=== PATIENT | male | born 1960 | race Caucasian/White ===

== ENCOUNTER 2016-08-11 22:49 | Inpatient (IN) | payer MEDICARE, MEDICAID ==
[~2016-08-11] VITALS: Ht 188 cm; Wt 90.5 kg
[~2016-08-11 22:49] MED LIST: AMLO-511 PO; ASPI-556 PO; ATOR20TA86 PO; CLOZ100 PO; CLOZ25TA4 PO; DIVA500T52 PO; LORA10TA7 PO; MULT-1238 PO
[2016-08-11] MEDS ORDERED: HYDR25TA PO (23:02)
[2016-08-11 23:20] LABS: BASOPHILS % (AUTO) 0.3 % (0.0-2.0); EOSINOPHILS % (AUTO) 0 % (1.0-6.0); HEMATOCRIT 39.8 % (41-53); HEMOGLOBIN 13.1 g/dL (13.5-17.5); LYMPHOCYTES # (AUTO) 3.4 K/uL (1.0-4.8); LYMPHOCYTES % (AUTO) 24.9 % (22.0-44.0); MEAN CORPUSCULAR VOLUME 88 fL (80-100); MONOCYTES # (AUTO) 1.3 K/uL (0.1-1.0); MONOCYTES % (AUTO) 9.5 % (2.0-9.0); NEUTROPHILS # (AUTO) 8.9 K/uL (1.8-7.7); NEUTROPHILS % (AUTO) 65.3 % (40.0-70.0); PLATELET COUNT (AUTO) 294 K/uL (150-450); RED BLOOD CELL COUNT(AUTO) 4.52 MIL/uL (4.50-5.90); RED CELL DISTRIBUTION WIDTH 13.6 % (11.5-14.5); WHITE BLOOD COUNT (AUTO) 13.6 K/uL (4.5-11.0)
[2016-08-11 23:24] LABS: ANION GAP 11 mmol/L (8-16); CALCIUM, TOTAL 8.7 mg/dL (8.8-10.5); CARBON DIOXIDE 25 mmol/L (22-29); CHLORIDE 101 mmol/L (98-107); CREATININE 1.17 mg/dL (0.60-1.30); GLOMERULAR FILTR. RATE CALC > 60 mL/min (>60); POTASSIUM 3.3 mmol/L (3.5-5.1); SODIUM SERUM 137 mmol/L (136-145); UREA NITROGEN, BLOOD 23 mg/dL (7-18)
[2016-08-11 23:30] LABS: ALANINE AMINOTRANSFERASE 31 U/L (12-78); ALBUMIN 3.6 g/dL (3.4-5.0); ASPARTATE AMINOTRANSFERASE 42 U/L (15-37); BILIRUBIN,TOTAL 0.3 mg/dL (0.1-1.0)
[2016-08-12] MEDS ORDERED: POTASSIUM CHLORIDE 20 MEQ ER TABLET PO ONE (02:15)
[2016-08-12] MEDS ORDERED: DiphenhydrAMINE HCL 50 MG/ML VIAL IM ONE (02:15)
[2016-08-12] MEDS ORDERED: HALOPERIDOL LACTATE 5 MG/ML VIAL IM ONE (02:15)
[2016-08-12] MEDS ORDERED: LORazepam 2 MG/ML VIAL IM ONE (02:15)
[2016-08-12 10:39] VITALS: BP 120/71
[2016-08-12] MEDS: LORazepam 2 MG TABLET PO PRN (10:53)
[2016-08-12] MEDS: HALOPERIDOL 5 MG TABLET PO PRN (10:53)
[2016-08-12] MEDS ORDERED: PNEUMOCOCCAL VACCINE POLYVALENT 0.5 ML VIAL [PPSV23] IM ONE (12:00)
[2016-08-12] MEDS ORDERED: INFLUENZA VIRUS VACCINE QVS 2016-17 (3YR+)/PF 60 MCG/0.5 ML SYRINGE IM ONE (12:00)
[2016-08-12] MEDS: NICOTINE 21 MG/24 HOUR PATCH TD SCH (14:35)
[2016-08-12 18:16] VITALS: BP 121/67
[2016-08-12 19:00] VITALS: BP 124/67
[2016-08-12] MEDS: ZOLPIDEM TARTRATE 10 MG TABLET PO PRN (23:49)
[2016-08-13 05:06] VITALS: BP 127/85
[2016-08-13 08:00] VITALS: BP 135/79
[2016-08-13] MEDS ORDERED: MAGNESIUM HYDROXIDE SUSPENSION 30 ML UDCUP PO PRN (08:45)
[2016-08-13] MEDS ORDERED: IBUPROFEN 600 MG TABLET PO PRN (08:45)
[2016-08-13] MEDS ORDERED: PETROLATUM,WHITE 71 GM JELLY TP PRN (08:45)
[2016-08-13] MEDS ORDERED: LOPERAMIDE HCL 2 MG CAPSULE PO PRN (08:45)
[2016-08-13] MEDS ORDERED: BACITRACIN 28.4 GM OINTMENT TP PRN (08:45)
[2016-08-13] MEDS ORDERED: ONDANSETRON HCL 4 MG TABLET PO PRN (08:45)
[2016-08-13] MEDS ORDERED: MAG HYDROX/AL HYDROX/SIMETH ES 30 ML SUSPENSION UDCUP PO PRN (08:45)
[2016-08-13] MEDS ORDERED: ALBUTEROL SULFATE HFA 90 MCG/PUFF 8 GM INHALER IH PRN (08:45)
[2016-08-13] MEDS ORDERED: CloNIDine HCL 0.1 MG TABLET PO PRN (08:45)
[2016-08-13] MEDS ORDERED: BENZOCAINE/MENTHOL LOZENGE [8 LOZENGES/PACKET] MM PRN (08:45)
[2016-08-13] MEDS ORDERED: ACETAMINOPHEN 325 MG TABLET PO PRN (08:45)
[2016-08-13] MEDS ORDERED: NICOTINE 21 MG/24 HOUR PATCH TD SCH (09:00)
[2016-08-13] MEDS: MULTIVITAMINS, THERAPEUTIC TABLET PO SCH (10:35)
[2016-08-13] MEDS: AmLODIPine BESYLATE 10 MG TABLET PO SCH (10:35)
[2016-08-13] MEDS: LORATADINE 10 MG TABLET PO SCH (10:35)
[2016-08-13] MEDS: ATORVASTATIN CALCIUM 20 MG TABLET PO SCH (10:35)
[2016-08-13] MEDS: NICOTINE 21 MG/24 HOUR PATCH TD SCH (10:36)
[2016-08-13] MEDS: HYDROCHLOROTHIAZIDE 25 MG TABLET PO SCH (10:36)
[2016-08-13] MEDS: ASPIRIN 81 MG CHEWABLE TABLET PO SCH (10:37)
[2016-08-13] MEDS ORDERED: POTASSIUM CHLORIDE 20 MEQ ER TABLET PO ONE (10:45)
[2016-08-13 16:30] VITALS: BP 107/61
[2016-08-14 02:15] VITALS: BP 138/89
[2016-08-14] MEDS: LORazepam 2 MG TABLET PO PRN ×3 (02:19→23:40)
[2016-08-14] MEDS: ZOLPIDEM TARTRATE 10 MG TABLET PO PRN ×2 (02:19→23:40)
[2016-08-14 06:24] LABS: HEMOGLOBIN A1C 6.1 % (4.5-6.2)
[2016-08-14 06:31] LABS: CHOL/HDL RATIO 2.4 (4.2-7.3); POTASSIUM 4.4 mmol/L (3.5-5.1); THYROID STIMULATING HORMONE 1.61 uIU/mL (0.36-3.74)
[2016-08-14 08:30] VITALS: BP 108/62
[2016-08-14] MEDS: MULTIVITAMINS, THERAPEUTIC TABLET PO SCH (08:52)
[2016-08-14] MEDS: ASPIRIN 81 MG CHEWABLE TABLET PO SCH (08:54)
[2016-08-14] MEDS: LORATADINE 10 MG TABLET PO SCH (08:54)
[2016-08-14] MEDS: HYDROCHLOROTHIAZIDE 25 MG TABLET PO SCH (08:54)
[2016-08-14] MEDS: ATORVASTATIN CALCIUM 20 MG TABLET PO SCH (08:54)
[2016-08-14] MEDS: NICOTINE 21 MG/24 HOUR PATCH TD SCH (08:57)
[2016-08-14] MEDS: AmLODIPine BESYLATE 10 MG TABLET PO SCH (09:00)
[2016-08-14] MEDS: HALOPERIDOL 5 MG TABLET PO PRN (16:29)
[2016-08-14 21:29] VITALS: BP 147/79
[2016-08-15 03:38] VITALS: BP 127/80
[2016-08-15 08:30] VITALS: BP 128/88
[2016-08-15] MEDS: ASPIRIN 81 MG CHEWABLE TABLET PO SCH (08:45)
[2016-08-15] MEDS: ATORVASTATIN CALCIUM 20 MG TABLET PO SCH (08:45)
[2016-08-15] MEDS: LORATADINE 10 MG TABLET PO SCH (08:45)
[2016-08-15] MEDS: AmLODIPine BESYLATE 10 MG TABLET PO SCH (08:46)
[2016-08-15] MEDS: MULTIVITAMINS, THERAPEUTIC TABLET PO SCH (08:46)
[2016-08-15] MEDS: HYDROCHLOROTHIAZIDE 25 MG TABLET PO SCH (08:46)
[2016-08-15] MEDS: NICOTINE 21 MG/24 HOUR PATCH TD SCH (08:48)
[2016-08-15 16:54] VITALS: BP 140/81
[2016-08-15] MEDS: HALOPERIDOL 5 MG TABLET PO PRN (22:32)
[2016-08-15] MEDS: LORazepam 2 MG TABLET PO PRN (22:33)
[2016-08-16 00:05] VITALS: BP 118/78
[2016-08-16] MEDS: AmLODIPine BESYLATE 10 MG TABLET PO SCH (08:05)
[2016-08-16] MEDS: MULTIVITAMINS, THERAPEUTIC TABLET PO SCH (08:05)
[2016-08-16] MEDS: LORATADINE 10 MG TABLET PO SCH (08:05)
[2016-08-16] MEDS: ASPIRIN 81 MG CHEWABLE TABLET PO SCH (08:05)
[2016-08-16] MEDS: ATORVASTATIN CALCIUM 20 MG TABLET PO SCH (08:05)
[2016-08-16] MEDS: HYDROCHLOROTHIAZIDE 25 MG TABLET PO SCH (08:05)
[2016-08-16] MEDS: NICOTINE 21 MG/24 HOUR PATCH TD SCH (08:42)
[2016-08-16 16:21] VITALS: BP 135/87
[2016-08-16] MEDS: LORazepam 2 MG TABLET PO PRN (17:56)
[2016-08-16] MEDS: HALOPERIDOL 5 MG TABLET PO PRN (17:56)
[2016-08-17 01:22] VITALS: BP 142/86
[2016-08-17 08:30] VITALS: BP 144/77
[2016-08-17] MEDS: MULTIVITAMINS, THERAPEUTIC TABLET PO SCH (09:01)
[2016-08-17] MEDS: HYDROCHLOROTHIAZIDE 25 MG TABLET PO SCH (09:01)
[2016-08-17] MEDS: ATORVASTATIN CALCIUM 20 MG TABLET PO SCH (09:01)
[2016-08-17] MEDS: AmLODIPine BESYLATE 10 MG TABLET PO SCH (09:01)
[2016-08-17] MEDS: LORATADINE 10 MG TABLET PO SCH (09:01)
[2016-08-17] MEDS: ASPIRIN 81 MG CHEWABLE TABLET PO SCH (09:01)
[2016-08-17] MEDS: NICOTINE 21 MG/24 HOUR PATCH TD SCH (09:03)
[2016-08-17 16:42] VITALS: BP 139/76
[2016-08-17] MEDS: HALOPERIDOL 5 MG TABLET PO PRN (18:21)
[2016-08-17] MEDS: LORazepam 2 MG TABLET PO PRN (18:21)
[2016-08-18] MEDS: ZOLPIDEM TARTRATE 10 MG TABLET PO PRN (00:24)
[2016-08-18 00:27] VITALS: BP 113/83
[2016-08-18 06:46] LABS: BASOPHILS % (AUTO) 0.1 % (0.0-2.0); EOSINOPHILS % (AUTO) 0 % (1.0-6.0); HEMATOCRIT 41.1 % (41-53); HEMOGLOBIN 13.5 g/dL (13.5-17.5); LYMPHOCYTES # (AUTO) 2.9 K/uL (1.0-4.8); LYMPHOCYTES % (AUTO) 21.4 % (22.0-44.0); MEAN CORPUSCULAR HEMOGLOBIN 29.4 pg (26.0-34.0); MEAN CORPUSCULAR HGB CONC 32.8 G/dL (31.0-37.0); MEAN CORPUSCULAR VOLUME 89 fL (80-100); MONOCYTES # (AUTO) 1.5 K/uL (0.1-1.0); MONOCYTES % (AUTO) 10.8 % (2.0-9.0); NEUTROPHILS # (AUTO) 9.1 K/uL (1.8-7.7); NEUTROPHILS % (AUTO) 67.7 % (40.0-70.0); PLATELET COUNT (AUTO) 321 K/uL (150-450); RED BLOOD CELL COUNT(AUTO) 4.59 MIL/uL (4.50-5.90); RED CELL DISTRIBUTION WIDTH 13.1 % (11.5-14.5); WHITE BLOOD COUNT (AUTO) 13.5 K/uL (4.5-11.0)
[2016-08-18 08:30] VITALS: BP 140/75
[2016-08-18] MEDS: LORazepam 2 MG TABLET PO PRN (08:34)
[2016-08-18] MEDS: NICOTINE 21 MG/24 HOUR PATCH TD SCH (08:34)
[2016-08-18] MEDS: HALOPERIDOL 5 MG TABLET PO PRN (08:34)
[2016-08-18] MEDS: AmLODIPine BESYLATE 10 MG TABLET PO SCH (08:34)
[2016-08-18] MEDS: HYDROCHLOROTHIAZIDE 25 MG TABLET PO SCH (08:35)
[2016-08-18] MEDS: MULTIVITAMINS, THERAPEUTIC TABLET PO SCH (08:35)
[2016-08-18] MEDS: ASPIRIN 81 MG CHEWABLE TABLET PO SCH (08:35)
[2016-08-18] MEDS: ATORVASTATIN CALCIUM 20 MG TABLET PO SCH (08:35)
[2016-08-18] MEDS: LORATADINE 10 MG TABLET PO SCH (08:35)
[2016-08-18] MEDS ORDERED: CloZAPine 25 MG TABLET PO SCH (09:00)
[2016-08-19] MEDS ORDERED: CloZAPine 25 MG TABLET PO SCH ×2 (09:00→21:00)
[2016-08-21] MEDS ORDERED: CloZAPine 25 MG TABLET PO SCH (09:00)
[2016-08-26] MEDS ORDERED: CloZAPine 100 MG TABLET PO SCH (09:00)
[2016-08-30] MEDS ORDERED: CloZAPine 100 MG TABLET PO SCH ×2 (09:00→21:00)
== END 2016-08-18 16:43 | disposition home or self-care (01) | DRG 885 ==
LOC: EMS 22:52 → AHU 08-12 10:13 → 3EI 08-12 19:10
PROVIDERS: ADMIT Psychiatry & Neurology Psychiatry; ATTEND Psychiatry & Neurology Psychiatry
DX: F20.0 Paranoid schizophrenia (principal); E78.5 Hyperlipidemia, unspecified; E87.6 Hypokalemia; I10 Essential (primary) hypertension; I25.10 Atherosclerotic heart disease of native coronary artery without angina pectoris; F17.210 Nicotine dependence, cigarettes, uncomplicated; J44.9 Chronic obstructive pulmonary disease, unspecified; E11.65 Type 2 diabetes mellitus with hyperglycemia; K21.9 Gastro-esophageal reflux disease without esophagitis; K59.00 Constipation, unspecified; Z78.1 Physical restraint status; Z71.6 Tobacco abuse counseling; Z79.82 Long term (current) use of aspirin; Z79.899 Other long term (current) drug therapy
CPT/HCPCS: 82306; 83036; 84132; 84443; 96372; 99285; G0480; J1200; J1630; J2060; J3535

== ENCOUNTER 2016-08-18 16:15 | Inpatient (IN) | payer MEDICARE, MEDICAID ==
[~2016-08-18] VITALS: Ht 188 cm; Wt 93.2 kg
[~2016-08-18 16:15] MED LIST changes: +HYDR25TA PO
[2016-08-18] MEDS ORDERED: IBUPROFEN 600 MG TABLET PO PRN (17:15)
[2016-08-18] MEDS ORDERED: PETROLATUM,WHITE 71 GM JELLY TP PRN (17:15)
[2016-08-18] MEDS ORDERED: LOPERAMIDE HCL 2 MG CAPSULE PO PRN (17:15)
[2016-08-18] MEDS ORDERED: ACETAMINOPHEN 325 MG TABLET PO PRN (17:15)
[2016-08-18] MEDS ORDERED: CloNIDine HCL 0.1 MG TABLET PO PRN (17:30)
[2016-08-18] MEDS ORDERED: MAG HYDROX/AL HYDROX/SIMETH 30 ML SUSP UDCUP PO PRN (17:30)
[2016-08-18] MEDS ORDERED: BACITRACIN 28.4 GM OINTMENT TP PRN (17:30)
[2016-08-18 17:51] VITALS: BP 134/68
[2016-08-18] MEDS: ZOLPIDEM TARTRATE 10 MG TABLET PO PRN (22:12)
[2016-08-19 02:29] VITALS: BP 132/78
[2016-08-19 08:51] VITALS: BP 139/72
[2016-08-19] MEDS: ASPIRIN 81 MG CHEWABLE TABLET PO SCH (08:54)
[2016-08-19] MEDS: MULTIVITAMINS, THERAPEUTIC TABLET PO SCH (08:54)
[2016-08-19] MEDS: AmLODIPine BESYLATE 10 MG TABLET PO SCH (08:54)
[2016-08-19] MEDS: LORATADINE 10 MG TABLET PO SCH (08:54)
[2016-08-19] MEDS: ATORVASTATIN CALCIUM 20 MG TABLET PO SCH (08:54)
[2016-08-19] MEDS: HYDROCHLOROTHIAZIDE 25 MG TABLET PO SCH (08:54)
[2016-08-19] MEDS ORDERED: CloZAPine 25 MG TABLET PO SCH ×2 (09:00→21:00)
[2016-08-19] MEDS: NICOTINE 21 MG/24 HOUR PATCH TD SCH (09:01)
[2016-08-19 18:47] VITALS: BP 146/82
[2016-08-19] MEDS: BENZOCAINE/MENTHOL LOZENGES [6 LOZENGES/PACKET] PO PRN (20:49)
[2016-08-20] MEDS: ZOLPIDEM TARTRATE 10 MG TABLET PO PRN (01:01)
[2016-08-20 02:30] VITALS: BP 138/79
[2016-08-20] MEDS: LORazepam 2 MG TABLET PO PRN ×2 (02:33→15:44)
[2016-08-20 08:05] VITALS: BP 141/79
[2016-08-20] MEDS: HYDROCHLOROTHIAZIDE 25 MG TABLET PO SCH (08:11)
[2016-08-20] MEDS: MULTIVITAMINS, THERAPEUTIC TABLET PO SCH (08:11)
[2016-08-20] MEDS: AmLODIPine BESYLATE 10 MG TABLET PO SCH (08:11)
[2016-08-20] MEDS: ASPIRIN 81 MG CHEWABLE TABLET PO SCH (08:11)
[2016-08-20] MEDS: LORATADINE 10 MG TABLET PO SCH (08:11)
[2016-08-20] MEDS: ATORVASTATIN CALCIUM 20 MG TABLET PO SCH (08:11)
[2016-08-20] MEDS: NICOTINE 21 MG/24 HOUR PATCH TD SCH (08:16)
[2016-08-20] MEDS: BENZOCAINE/MENTHOL LOZENGES [6 LOZENGES/PACKET] PO PRN (08:59)
[2016-08-20] MEDS ORDERED: CloZAPine 25 MG TABLET PO SCH ×2 (09:00→21:00)
[2016-08-20] MEDS: HALOPERIDOL 5 MG TABLET PO PRN (15:44)
[2016-08-20 17:00] VITALS: BP 145/76
[2016-08-21 05:45] VITALS: BP 126/73
[2016-08-21 08:01] VITALS: BP 152/98
[2016-08-21] MEDS: MULTIVITAMINS, THERAPEUTIC TABLET PO SCH (08:54)
[2016-08-21] MEDS: ASPIRIN 81 MG CHEWABLE TABLET PO SCH (08:55)
[2016-08-21] MEDS: ATORVASTATIN CALCIUM 20 MG TABLET PO SCH (08:55)
[2016-08-21] MEDS: AmLODIPine BESYLATE 10 MG TABLET PO SCH (08:55)
[2016-08-21] MEDS: CloZAPine 25 MG TABLET PO SCH ×2 (08:55→19:59)
[2016-08-21] MEDS: LORATADINE 10 MG TABLET PO SCH (08:55)
[2016-08-21] MEDS: HYDROCHLOROTHIAZIDE 25 MG TABLET PO SCH (08:56)
[2016-08-21] MEDS: NICOTINE 21 MG/24 HOUR PATCH TD SCH (08:57)
[2016-08-21 16:58] VITALS: BP 114/77
[2016-08-22 03:00] VITALS: BP 148/86
[2016-08-22] MEDS: HALOPERIDOL 5 MG TABLET PO PRN (04:19)
[2016-08-22] MEDS: LORazepam 2 MG TABLET PO PRN (04:19)
[2016-08-22 08:05] VITALS: BP 140/75
[2016-08-22] MEDS: MULTIVITAMINS, THERAPEUTIC TABLET PO SCH (08:48)
[2016-08-22] MEDS: CloZAPine 25 MG TABLET PO SCH ×2 (08:48→20:25)
[2016-08-22] MEDS: AmLODIPine BESYLATE 10 MG TABLET PO SCH (08:49)
[2016-08-22] MEDS: ATORVASTATIN CALCIUM 20 MG TABLET PO SCH (08:49)
[2016-08-22] MEDS: ASPIRIN 81 MG CHEWABLE TABLET PO SCH (08:49)
[2016-08-22] MEDS: LORATADINE 10 MG TABLET PO SCH (08:49)
[2016-08-22] MEDS: HYDROCHLOROTHIAZIDE 25 MG TABLET PO SCH (08:51)
[2016-08-22] MEDS: NICOTINE 21 MG/24 HOUR PATCH TD SCH (08:53)
[2016-08-22 16:38] VITALS: BP 130/79
[2016-08-23 00:55] VITALS: BP 154/96
[2016-08-23 08:06] VITALS: BP 155/83
[2016-08-23] MEDS: MULTIVITAMINS, THERAPEUTIC TABLET PO SCH (08:18)
[2016-08-23] MEDS: AmLODIPine BESYLATE 10 MG TABLET PO SCH (08:19)
[2016-08-23] MEDS: ASPIRIN 81 MG CHEWABLE TABLET PO SCH (08:19)
[2016-08-23] MEDS: LORATADINE 10 MG TABLET PO SCH (08:20)
[2016-08-23] MEDS: ATORVASTATIN CALCIUM 20 MG TABLET PO SCH (08:20)
[2016-08-23] MEDS: HYDROCHLOROTHIAZIDE 25 MG TABLET PO SCH (08:21)
[2016-08-23] MEDS: NICOTINE 21 MG/24 HOUR PATCH TD SCH ×2 (08:21→09:00)
[2016-08-23] MEDS ORDERED: CloZAPine 25 MG TABLET PO SCH (09:00)
[2016-08-23] MEDS: HALOPERIDOL 5 MG TABLET PO PRN (15:48)
[2016-08-23] MEDS: LORazepam 2 MG TABLET PO PRN (15:48)
[2016-08-23 17:00] VITALS: BP 163/87
[2016-08-23] MEDS ORDERED: CloZAPine 100 MG TABLET PO SCH (21:00)
[2016-08-24 06:40] VITALS: BP 141/83
[2016-08-24] MEDS: LORazepam 2 MG TABLET PO PRN (07:56)
[2016-08-24] MEDS: HYDROCHLOROTHIAZIDE 25 MG TABLET PO SCH (08:11)
[2016-08-24] MEDS: LORATADINE 10 MG TABLET PO SCH (08:12)
[2016-08-24] MEDS: MULTIVITAMINS, THERAPEUTIC TABLET PO SCH (08:12)
[2016-08-24] MEDS: ASPIRIN 81 MG CHEWABLE TABLET PO SCH (08:12)
[2016-08-24] MEDS: AmLODIPine BESYLATE 10 MG TABLET PO SCH (08:12)
[2016-08-24] MEDS: ATORVASTATIN CALCIUM 20 MG TABLET PO SCH (08:13)
[2016-08-24] MEDS: NICOTINE 21 MG/24 HOUR PATCH TD SCH (08:15)
[2016-08-24] MEDS ORDERED: CloZAPine 25 MG TABLET PO SCH (09:00)
[2016-08-24 16:43] VITALS: BP 112/77
[2016-08-24] MEDS ORDERED: CloZAPine 100 MG TABLET PO SCH (21:00)
[2016-08-25 06:34] LABS: BASOPHILS % (AUTO) 0.7 % (0.0-2.0); EOSINOPHILS % (AUTO) 0 % (1.0-6.0); HEMATOCRIT 39.9 % (41-53); HEMOGLOBIN 13.3 g/dL (13.5-17.5); LYMPHOCYTES # (AUTO) 2.6 K/uL (1.0-4.8); MEAN CORPUSCULAR HEMOGLOBIN 29.3 pg (26.0-34.0); MEAN CORPUSCULAR HGB CONC 33.2 G/dL (31.0-37.0); MEAN CORPUSCULAR VOLUME 88 fL (80-100); NEUTROPHILS # (AUTO) 6.9 K/uL (1.8-7.7); NEUTROPHILS % (AUTO) 65.3 % (40.0-70.0); PLATELET COUNT (AUTO) 304 K/uL (150-450); RED BLOOD CELL COUNT(AUTO) 4.53 MIL/uL (4.50-5.90); RED CELL DISTRIBUTION WIDTH 13.3 % (11.5-14.5); WHITE BLOOD COUNT (AUTO) 10.6 K/uL (4.5-11.0)
[2016-08-25] MEDS: ASPIRIN 81 MG CHEWABLE TABLET PO SCH (08:47)
[2016-08-25] MEDS: ATORVASTATIN CALCIUM 20 MG TABLET PO SCH (08:47)
[2016-08-25] MEDS: HYDROCHLOROTHIAZIDE 25 MG TABLET PO SCH (08:49)
[2016-08-25] MEDS: LORATADINE 10 MG TABLET PO SCH (08:49)
[2016-08-25] MEDS: MULTIVITAMINS, THERAPEUTIC TABLET PO SCH (08:49)
[2016-08-25] MEDS: NICOTINE 21 MG/24 HOUR PATCH TD SCH (09:00)
[2016-08-25] MEDS ORDERED: CloZAPine 25 MG TABLET PO SCH (09:00)
[2016-08-25] MEDS: AmLODIPine BESYLATE 10 MG TABLET PO SCH (09:00)
[2016-08-25 16:56] VITALS: BP 155/89
[2016-08-25 16:57] VITALS: BP 155/89
[2016-08-25] MEDS: HALOPERIDOL 5 MG TABLET PO PRN (19:16)
[2016-08-25] MEDS: LORazepam 2 MG TABLET PO PRN (19:16)
[2016-08-25] MEDS ORDERED: CloZAPine 100 MG TABLET PO SCH (21:00)
[2016-08-26 02:40] VITALS: BP 134/74
[2016-08-26] MEDS: LORATADINE 10 MG TABLET PO SCH (08:19)
[2016-08-26] MEDS: ASPIRIN 81 MG CHEWABLE TABLET PO SCH (08:19)
[2016-08-26] MEDS: MULTIVITAMINS, THERAPEUTIC TABLET PO SCH (08:19)
[2016-08-26] MEDS: HYDROCHLOROTHIAZIDE 25 MG TABLET PO SCH (08:19)
[2016-08-26] MEDS: ATORVASTATIN CALCIUM 20 MG TABLET PO SCH (08:20)
[2016-08-26] MEDS: CloZAPine 100 MG TABLET PO SCH ×2 (08:20→20:24)
[2016-08-26] MEDS: AmLODIPine BESYLATE 10 MG TABLET PO SCH (08:21)
[2016-08-26] MEDS: NICOTINE 21 MG/24 HOUR PATCH TD SCH (09:00)
[2016-08-26 10:26] VITALS: BP 154/79
[2016-08-26 17:16] VITALS: BP 121/79
[2016-08-27 00:10] VITALS: BP 140/76
[2016-08-27] MEDS: LORazepam 2 MG TABLET PO PRN (00:13)
[2016-08-27] MEDS: ZOLPIDEM TARTRATE 10 MG TABLET PO PRN (00:51)
[2016-08-27 08:00] VITALS: BP 169/83
[2016-08-27] MEDS: LORATADINE 10 MG TABLET PO SCH (08:26)
[2016-08-27] MEDS: HYDROCHLOROTHIAZIDE 25 MG TABLET PO SCH (08:26)
[2016-08-27] MEDS: MULTIVITAMINS, THERAPEUTIC TABLET PO SCH (08:26)
[2016-08-27] MEDS: ATORVASTATIN CALCIUM 20 MG TABLET PO SCH (08:26)
[2016-08-27] MEDS: ASPIRIN 81 MG CHEWABLE TABLET PO SCH (08:26)
[2016-08-27] MEDS: CloZAPine 100 MG TABLET PO SCH ×2 (08:26→20:00)
[2016-08-27] MEDS: AmLODIPine BESYLATE 10 MG TABLET PO SCH (08:26)
[2016-08-27] MEDS: NICOTINE 21 MG/24 HOUR PATCH TD SCH (09:00)
[2016-08-27 16:46] VITALS: BP 154/86
[2016-08-28 00:32] VITALS: BP 182/99
[2016-08-28 01:34] VITALS: BP 175/107
[2016-08-28 08:00] VITALS: BP 146/80
[2016-08-28] MEDS: AmLODIPine BESYLATE 10 MG TABLET PO SCH (08:52)
[2016-08-28] MEDS: ASPIRIN 81 MG CHEWABLE TABLET PO SCH (08:52)
[2016-08-28] MEDS: MULTIVITAMINS, THERAPEUTIC TABLET PO SCH (08:52)
[2016-08-28] MEDS: ATORVASTATIN CALCIUM 20 MG TABLET PO SCH (08:53)
[2016-08-28] MEDS: LORATADINE 10 MG TABLET PO SCH (08:53)
[2016-08-28] MEDS: NICOTINE 21 MG/24 HOUR PATCH TD SCH (08:53)
[2016-08-28] MEDS: HYDROCHLOROTHIAZIDE 25 MG TABLET PO SCH (08:53)
[2016-08-28] MEDS: LORazepam 2 MG TABLET PO PRN (08:54)
[2016-08-28] MEDS ORDERED: CloZAPine 25 MG TABLET PO SCH (09:00)
[2016-08-28 16:54] VITALS: BP 121/79
[2016-08-28] MEDS ORDERED: CloZAPine 100 MG TABLET PO SCH (21:00)
[2016-08-29 03:26] VITALS: BP 133/91
[2016-08-29 08:00] VITALS: BP 150/86
[2016-08-29] MEDS: ATORVASTATIN CALCIUM 20 MG TABLET PO SCH (08:05)
[2016-08-29] MEDS: ASPIRIN 81 MG CHEWABLE TABLET PO SCH (08:05)
[2016-08-29] MEDS: AmLODIPine BESYLATE 10 MG TABLET PO SCH (08:05)
[2016-08-29] MEDS: LORATADINE 10 MG TABLET PO SCH (08:05)
[2016-08-29] MEDS: MULTIVITAMINS, THERAPEUTIC TABLET PO SCH (08:05)
[2016-08-29] MEDS: LORazepam 2 MG TABLET PO PRN (08:07)
[2016-08-29] MEDS: HYDROCHLOROTHIAZIDE 25 MG TABLET PO SCH (08:07)
[2016-08-29] MEDS: NICOTINE 21 MG/24 HOUR PATCH TD SCH (08:09)
[2016-08-29] MEDS ORDERED: CloZAPine 25 MG TABLET PO SCH (09:00)
[2016-08-29 16:57] VITALS: BP 131/78
[2016-08-29] MEDS ORDERED: CloZAPine 100 MG TABLET PO SCH (21:00)
[2016-08-30 05:54] VITALS: BP 141/80
[2016-08-30] MEDS: LORATADINE 10 MG TABLET PO SCH (08:03)
[2016-08-30] MEDS: ATORVASTATIN CALCIUM 20 MG TABLET PO SCH (08:03)
[2016-08-30] MEDS: ASPIRIN 81 MG CHEWABLE TABLET PO SCH (08:03)
[2016-08-30] MEDS: AmLODIPine BESYLATE 10 MG TABLET PO SCH (08:03)
[2016-08-30] MEDS: MULTIVITAMINS, THERAPEUTIC TABLET PO SCH (08:04)
[2016-08-30] MEDS: HYDROCHLOROTHIAZIDE 25 MG TABLET PO SCH (08:04)
[2016-08-30] MEDS: CloZAPine 100 MG TABLET PO SCH ×2 (08:04→20:38)
[2016-08-30 08:05] VITALS: BP 151/89
[2016-08-30] MEDS: NICOTINE 21 MG/24 HOUR PATCH TD SCH (08:09)
[2016-08-30 16:12] VITALS: BP 123/78
[2016-08-31 08:12] VITALS: BP 130/78
[2016-08-31] MEDS: ASPIRIN 81 MG CHEWABLE TABLET PO SCH (08:28)
[2016-08-31] MEDS: AmLODIPine BESYLATE 10 MG TABLET PO SCH (08:28)
[2016-08-31] MEDS: CloZAPine 100 MG TABLET PO SCH ×2 (08:28→20:13)
[2016-08-31] MEDS: LORATADINE 10 MG TABLET PO SCH (08:28)
[2016-08-31] MEDS: ATORVASTATIN CALCIUM 20 MG TABLET PO SCH (08:28)
[2016-08-31] MEDS: MULTIVITAMINS, THERAPEUTIC TABLET PO SCH (08:28)
[2016-08-31] MEDS: HYDROCHLOROTHIAZIDE 25 MG TABLET PO SCH (08:29)
[2016-08-31] MEDS: NICOTINE 21 MG/24 HOUR PATCH TD SCH (08:32)
[2016-09-01 06:39] LABS: BASOPHILS % (AUTO) 0.3 % (0.0-2.0); EOSINOPHILS % (AUTO) 0 % (1.0-6.0); HEMATOCRIT 41.6 % (41-53); HEMOGLOBIN 13.3 g/dL (13.5-17.5); LYMPHOCYTES # (AUTO) 2.3 K/uL (1.0-4.8); LYMPHOCYTES % (AUTO) 20.6 % (22.0-44.0); MEAN CORPUSCULAR HEMOGLOBIN 28.3 pg (26.0-34.0); MEAN CORPUSCULAR HGB CONC 31.9 G/dL (31.0-37.0); MEAN CORPUSCULAR VOLUME 89 fL (80-100); MONOCYTES # (AUTO) 1.5 K/uL (0.1-1.0); MONOCYTES % (AUTO) 13.7 % (2.0-9.0); NEUTROPHILS # (AUTO) 7.4 K/uL (1.8-7.7); NEUTROPHILS % (AUTO) 65.4 % (40.0-70.0); PLATELET COUNT (AUTO) 239 K/uL (150-450); RED CELL DISTRIBUTION WIDTH 13.3 % (11.5-14.5); WHITE BLOOD COUNT (AUTO) 11.3 K/uL (4.5-11.0)
[2016-09-01 08:05] VITALS: BP 136/88
[2016-09-01] MEDS: AmLODIPine BESYLATE 10 MG TABLET PO SCH (08:06)
[2016-09-01] MEDS: MULTIVITAMINS, THERAPEUTIC TABLET PO SCH (08:06)
[2016-09-01] MEDS: ATORVASTATIN CALCIUM 20 MG TABLET PO SCH (08:06)
[2016-09-01] MEDS: HYDROCHLOROTHIAZIDE 25 MG TABLET PO SCH (08:06)
[2016-09-01] MEDS: ASPIRIN 81 MG CHEWABLE TABLET PO SCH (08:06)
[2016-09-01] MEDS: CloZAPine 100 MG TABLET PO SCH (08:06)
[2016-09-01] MEDS: LORATADINE 10 MG TABLET PO SCH (08:07)
[2016-09-01] MEDS: NICOTINE 21 MG/24 HOUR PATCH TD SCH (08:10)
[2016-09-01] MEDS ORDERED: CLOZ100 PO (10:27)
== END 2016-09-01 17:24 | disposition home or self-care (01) | DRG 885 ==
LOC: 3EX 16:15
PROVIDERS: ADMIT Psychiatry & Neurology Psychiatry; ATTEND Psychiatry & Neurology Psychiatry
DX: F20.0 Paranoid schizophrenia (principal); F17.200 Nicotine dependence, unspecified, uncomplicated; G47.00 Insomnia, unspecified; I10 Essential (primary) hypertension; J44.9 Chronic obstructive pulmonary disease, unspecified; K21.9 Gastro-esophageal reflux disease without esophagitis; K59.00 Constipation, unspecified; M19.90 Unspecified osteoarthritis, unspecified site; F09 Unspecified mental disorder due to known physiological condition; Z71.6 Tobacco abuse counseling

== ENCOUNTER 2016-12-16 09:58 | Inpatient (IN) | payer MEDICARE, MEDICAID ==
[~2016-12-16] VITALS: Ht 185.4 cm; Wt 90.7 kg
[~2016-12-16 09:58] MED LIST changes: -CLOZ25TA4 PO; -DIVA500T52 PO
[2016-12-16 13:05] VITALS: BP 116/84
[2016-12-16] MEDS ORDERED: HALOPERIDOL 5 MG TABLET PO PRN (13:15)
[2016-12-16] MEDS ORDERED: LORazepam 2 MG TABLET PO PRN (13:15)
[2016-12-16] MEDS ORDERED: ZOLPIDEM TARTRATE 10 MG TABLET PO PRN (13:15)
[2016-12-16] MEDS ORDERED: OMEG-11 PO (14:04)
[2016-12-16 14:07] VITALS: BP 112/72
[2016-12-16] MEDS ORDERED: PNEUMOCOCCAL VACCINE POLYVALENT 0.5 ML VIAL [PPSV23] IM ONE (15:00)
[2016-12-16 16:09] VITALS: BP 110/62
[2016-12-16] MEDS ORDERED: MAGNESIUM HYDROXIDE SUSPENSION 30 ML UDCUP PO PRN (17:15)
[2016-12-16] MEDS ORDERED: CloZAPine 100 MG TABLET PO ONE (21:00)
[2016-12-17 00:51] VITALS: BP 110/73
[2016-12-17] MEDS ORDERED: ACETAMINOPHEN 325 MG TABLET PO PRN (08:00)
[2016-12-17] MEDS ORDERED: ALBUTEROL SULFATE HFA 90 MCG/PUFF 8 GM INHALER IH PRN (08:00)
[2016-12-17] MEDS ORDERED: PETROLATUM,WHITE 71 GM JELLY TP PRN (08:00)
[2016-12-17] MEDS ORDERED: IBUPROFEN 600 MG TABLET PO PRN (08:00)
[2016-12-17] MEDS ORDERED: ONDANSETRON HCL 4 MG TABLET PO PRN (08:00)
[2016-12-17] MEDS ORDERED: MAGNESIUM HYDROXIDE SUSPENSION 30 ML UDCUP PO PRN (08:00)
[2016-12-17] MEDS ORDERED: LOPERAMIDE HCL 2 MG CAPSULE PO PRN (08:00)
[2016-12-17] MEDS ORDERED: BACITRACIN 28.4 GM OINTMENT TP PRN (08:00)
[2016-12-17] MEDS ORDERED: MAG HYDROX/AL HYDROX/SIMETH ES 30 ML SUSPENSION UDCUP PO PRN (08:00)
[2016-12-17] MEDS ORDERED: BENZOCAINE/MENTHOL LOZENGE MM PRN (08:00)
[2016-12-17] MEDS ORDERED: CloNIDine HCL 0.1 MG TABLET PO PRN (08:00)
[2016-12-17 08:22] LABS: BASOPHILS # (AUTO) 0.05 K/uL (0.00-0.20); BASOPHILS % (AUTO) 0.4 % (0.0-2.0); EOSINOPHILS % (AUTO) 0.02 % (1.0-6.0); HEMATOCRIT 42.4 % (41-53); HEMOGLOBIN 14.1 g/dL (13.5-17.5); LYMPHOCYTES # (AUTO) 4.1 K/uL (1.0-4.8); LYMPHOCYTES % (AUTO) 32.1 % (22.0-44.0); MEAN CORPUSCULAR HEMOGLOBIN 28.9 pg (26.0-34.0); MEAN CORPUSCULAR HGB CONC 33.2 G/dL (31.0-37.0); MEAN CORPUSCULAR VOLUME 87 fL (80-100); MONOCYTES # (AUTO) 1.1 K/uL (0.1-1.0); MONOCYTES % (AUTO) 8.8 % (2.0-9.0); NEUTROPHILS # (AUTO) 7.5 K/uL (1.8-7.7); NEUTROPHILS % (AUTO) 58.8 % (40.0-70.0); PLATELET COUNT (AUTO) 284 K/uL (150-450); RED BLOOD CELL COUNT(AUTO) 4.87 MIL/uL (4.50-5.90); RED CELL DISTRIBUTION WIDTH 14.7 % (11.5-14.5); WHITE BLOOD COUNT (AUTO) 12.8 K/uL (4.5-11.0)
[2016-12-17] MEDS: NICOTINE 21 MG/24 HOUR PATCH TD SCH (08:45)
[2016-12-17 08:48] LABS: CARBON DIOXIDE 29 mmol/L (22-29); CHLORIDE 104 mmol/L (98-107); POTASSIUM 4.5 mmol/L (3.5-5.1); SODIUM SERUM 139 mmol/L (136-145)
[2016-12-17 08:49] LABS: ALANINE AMINOTRANSFERASE 32 U/L (12-78); ALBUMIN 3.4 g/dL (3.4-5.0); ANION GAP 6 mmol/L (8-16); ASPARTATE AMINOTRANSFERASE 13 U/L (15-37); BILIRUBIN,TOTAL 0.3 mg/dL (0.1-1.0); CALCIUM, TOTAL 8.6 mg/dL (8.8-10.5); CREATININE 1.01 mg/dL (0.60-1.30); GLOMERULAR FILTR. RATE CALC > 60 mL/min (>60); TOTAL PROTEIN, SERUM 6.2 g/dL (6.4-8.2); UREA NITROGEN, BLOOD 16 mg/dL (7-18)
[2016-12-17 09:12] LABS: GLUCOSE, URINE (UA) NEGATIVE (NEGATIVE); KETONES,URINE NEGATIVE (NEGATIVE); LEUKOCYTE ESTERASE ,URINE NEGATIVE (NEGATIVE); OCCULT BLOOD,URINE NEGATIVE (NEGATIVE); PH,URINE 6.5 (5.0-8.0); PROTEIN,URINE NEGATIVE (NEGATIVE)
[2016-12-17 09:19] LABS: ADD UA MICROSCOPIC NO; APPEARANCE,URINE CLEAR (CLEAR)
[2016-12-17] MEDS: CloZAPine 100 MG TABLET PO SCH ×2 (10:32→20:47)
[2016-12-17 12:55] VITALS: BP 107/65
[2016-12-17] MEDS ORDERED: AMLO-512 PO (13:19)
[2016-12-17 16:00] VITALS: BP 118/79
[2016-12-17] MEDS ORDERED: CloZAPine 100 MG TABLET PO SCH (21:00)
[2016-12-18 00:01] VITALS: BP 128/73
[2016-12-18 08:02] VITALS: BP 108/62
[2016-12-18] MEDS: NICOTINE 21 MG/24 HOUR PATCH TD SCH (08:05)
[2016-12-18] MEDS: CloZAPine 100 MG TABLET PO SCH ×2 (08:05→20:07)
[2016-12-18] MEDS ORDERED: CloZAPine 100 MG TABLET PO SCH (09:00)
[2016-12-18 16:07] VITALS: BP 124/72
[2016-12-19 04:59] VITALS: BP 125/72
[2016-12-19 08:05] VITALS: BP 120/62
[2016-12-19] MEDS: CloZAPine 100 MG TABLET PO SCH ×2 (08:56→20:40)
[2016-12-19] MEDS: NICOTINE 21 MG/24 HOUR PATCH TD SCH (08:56)
[2016-12-19 16:16] VITALS: BP 136/77
[2016-12-20] MEDS: NICOTINE 21 MG/24 HOUR PATCH TD SCH (08:19)
[2016-12-20] MEDS: CloZAPine 100 MG TABLET PO SCH ×2 (08:19→20:46)
[2016-12-20 08:35] VITALS: BP 123/54
[2016-12-20] MEDS: LISINOPRIL 10 MG TABLET PO SCH (09:00)
[2016-12-20 16:07] VITALS: BP 134/79
[2016-12-21 00:35] VITALS: BP 114/60
[2016-12-21 08:02] VITALS: BP 125/68
[2016-12-21] MEDS: LISINOPRIL 10 MG TABLET PO SCH (08:15)
[2016-12-21] MEDS: CloZAPine 100 MG TABLET PO SCH ×2 (08:15→20:34)
[2016-12-21] MEDS: NICOTINE 21 MG/24 HOUR PATCH TD SCH (08:15)
[2016-12-21 10:20] LABS: CLOZAPINE 181 ng/mL (350-650); CLOZAPINE & NORCLOZAPINE 257 ng/mL; NORCLOZAPINE 76 ng/mL (Not Estab.)
[2016-12-21 16:14] VITALS: BP 129/71
[2016-12-22 00:44] VITALS: BP 127/76
[2016-12-22 08:21] VITALS: BP 118/57
[2016-12-22] MEDS: NICOTINE 21 MG/24 HOUR PATCH TD SCH (09:32)
[2016-12-22] MEDS: CloZAPine 100 MG TABLET PO SCH ×2 (09:32→20:47)
[2016-12-22] MEDS: LISINOPRIL 10 MG TABLET PO SCH (09:32)
[2016-12-22 16:06] VITALS: BP 118/75
[2016-12-23 00:49] VITALS: BP 124/65
[2016-12-23 08:05] VITALS: BP 117/64
[2016-12-23] MEDS: LISINOPRIL 10 MG TABLET PO SCH (08:58)
[2016-12-23] MEDS: NICOTINE 21 MG/24 HOUR PATCH TD SCH (08:59)
[2016-12-23] MEDS: CloZAPine 100 MG TABLET PO SCH (08:59)
[2016-12-23] MEDS ORDERED: LISI-661 PO (10:05)
== END 2016-12-23 12:25 | disposition home or self-care (01) | DRG 885 ==
LOC: B2X 13:32 → EDSTATUS 14:08
DX: F20.0 Paranoid schizophrenia (principal); F23 Brief psychotic disorder; K21.9 Gastro-esophageal reflux disease without esophagitis; J44.9 Chronic obstructive pulmonary disease, unspecified; I10 Essential (primary) hypertension; K59.00 Constipation, unspecified; G47.00 Insomnia, unspecified; Z71.6 Tobacco abuse counseling; F17.290 Nicotine dependence, other tobacco product, uncomplicated; Z79.82 Long term (current) use of aspirin; Z91.5 Personal history of self-harm; Z79.899 Other long term (current) drug therapy; Z28.21 Immunization not carried out because of patient refusal
CPT/HCPCS: 80159; 90471

== ENCOUNTER 2018-12-22 21:36 | Inpatient (IN) | payer MEDICAID, MEDICARE ==
[~2018-12-22 21:36] MED LIST changes: -AMLO-511 PO; -ASPI-556 PO; -ATOR20TA86 PO; -HYDR25TA PO; +LISI-661 PO; -LORA10TA7 PO; -MULT-1238 PO
[2018-12-22 22:01] VITALS: BP 125/78
[2018-12-22] MEDS ORDERED: ZOLPIDEM TARTRATE 10 MG TABLET PO PRN (22:30)
[2018-12-22] MEDS ORDERED: HALOPERIDOL 5 MG TABLET PO PRN (22:30)
[2018-12-23 01:08] VITALS: BP 133/70
[2018-12-23] MEDS ORDERED: IBUPROFEN 400 MG TABLET PO PRN (01:45)
[2018-12-23] MEDS ORDERED: ACETAMINOPHEN 325 MG TABLET PO PRN (01:45)
[2018-12-23] MEDS ORDERED: GuaiFENesin/D-METHORPHAN [SUGAR-FREE] 200-20MG/10 ML SYRUP UDCUP PO PRN (01:45)
[2018-12-23] MEDS ORDERED: MAG HYDROX/AL HYDROX/SIMETH ES 30 ML SUSPENSION UDCUP PO PRN (01:45)
[2018-12-23] MEDS ORDERED: PETROLATUM,WHITE 28 GM JELLY TP PRN (01:45)
[2018-12-23] MEDS ORDERED: DOCUSATE SODIUM 100 MG CAPSULE PO PRN (01:45)
[2018-12-23] MEDS ORDERED: CloNIDine HCL 0.1 MG TABLET PO PRN (01:45)
[2018-12-23] MEDS ORDERED: ALBUTEROL SULFATE HFA 90 MCG/PUFF 8 GM INHALER IH PRN (01:45)
[2018-12-23] MEDS ORDERED: LOPERAMIDE HCL 2 MG CAPSULE PO PRN (01:45)
[2018-12-23] MEDS ORDERED: NICOTINE 14 MG/24 HOUR PATCH TD PRN (01:45)
[2018-12-23] MEDS ORDERED: MAGNESIUM HYDROXIDE SUSPENSION 30 ML UDCUP PO PRN (01:45)
[2018-12-23] MEDS ORDERED: ONDANSETRON HCL 4 MG TABLET PO PRN (01:45)
[2018-12-23 08:44] VITALS: BP 116/60
[2018-12-23] MEDS: LORazepam 2 MG TABLET PO PRN (09:04)
[2018-12-23 16:23] VITALS: BP 124/74
[2018-12-23] MEDS: CloZAPine 100 MG TABLET PO SCH (20:40)
[2018-12-24 07:00] VITALS: BP 120/80
[2018-12-24 08:46] VITALS: BP 128/70
[2018-12-24] MEDS: CloZAPine 100 MG TABLET PO SCH ×2 (08:57→20:42)
[2018-12-24] MEDS: LORazepam 2 MG TABLET PO PRN (12:14)
[2018-12-24 16:10] VITALS: BP 139/81
[2018-12-25 00:40] VITALS: BP 140/81
[2018-12-25 08:50] VITALS: BP 113/64
[2018-12-25] MEDS: CloZAPine 100 MG TABLET PO SCH ×2 (08:57→20:55)
[2018-12-25 16:06] VITALS: BP 139/92
[2018-12-25] MEDS ORDERED: PNEUMOCOCCAL VACCINE POLYVALENT 0.5 ML VIAL [PPSV23] IM ONE (21:15)
[2018-12-26 00:10] VITALS: BP 127/76
[2018-12-26 08:15] VITALS: BP 115/60
[2018-12-26] MEDS: LISINOPRIL 10 MG TABLET PO SCH (09:15)
[2018-12-26] MEDS: CloZAPine 100 MG TABLET PO SCH ×2 (09:15→21:40)
[2018-12-26 16:18] VITALS: BP 124/76
[2018-12-27 00:02] VITALS: BP 122/78
[2018-12-27 08:37] VITALS: BP 103/60
[2018-12-27] MEDS: CloZAPine 100 MG TABLET PO SCH ×2 (08:55→20:07)
[2018-12-27] MEDS: LISINOPRIL 10 MG TABLET PO SCH (08:56)
[2018-12-27 16:48] VITALS: BP 122/67
[2018-12-28 06:25] VITALS: BP 120/77
[2018-12-28] MEDS: LISINOPRIL 10 MG TABLET PO SCH (09:06)
[2018-12-28] MEDS: CloZAPine 100 MG TABLET PO SCH (09:06)
[2018-12-28 09:31] VITALS: BP 125/74
== END 2018-12-28 12:20 | disposition home or self-care (01) | DRG 885 ==
LOC: B2X 22:33 → B2S 12-25 09:16
PROVIDERS: ADMIT Psychiatry & Neurology Psychiatry; ATTEND Psychiatry & Neurology Psychiatry
DX: F25.0 Schizoaffective disorder, bipolar type (principal); R45.851 Suicidal ideations; F41.9 Anxiety disorder, unspecified; E78.5 Hyperlipidemia, unspecified; G40.909 Epilepsy, unspecified, not intractable, without status epilepticus; R45.87 Impulsiveness; I10 Essential (primary) hypertension; I25.10 Atherosclerotic heart disease of native coronary artery without angina pectoris; J44.9 Chronic obstructive pulmonary disease, unspecified; Z91.19 Patient's noncompliance with other medical treatment and regimen; Z28.21 Immunization not carried out because of patient refusal

== ENCOUNTER 2019-10-18 19:48 | Inpatient (IN) | payer MEDICARE, MEDICAID ==
[~2019-10-18] VITALS: Ht 185.4 cm; Wt 97.5 kg
[~2019-10-18 19:48] MED LIST changes: -CLOZ100 PO; +CLOZ100T57 PO
[2019-10-18 20:10] VITALS: BP 158/79
[2019-10-18] MEDS ORDERED: LORazepam 2 MG/ML VIAL IM ONE (20:15)
[2019-10-18] MEDS ORDERED: PNEUMOCOCCAL VACCINE POLYVALENT 0.5 ML VIAL [PPSV23] IM ONE (20:15)
[2019-10-18] MEDS ORDERED: HALOPERIDOL 5 MG TABLET PO PRN (20:15)
[2019-10-18] MEDS ORDERED: HALOPERIDOL LACTATE 5 MG/ML VIAL IM ONE (20:15)
[2019-10-18] MEDS ORDERED: DiphenhydrAMINE HCL 50 MG/ML VIAL IM ONE (20:15)
[2019-10-18] MEDS ORDERED: INFLUENZA VIRUS VACCINE QVS 2019-20 (3YR+)/PF 60 MCG/0.5 ML SYRINGE IM ONE (20:15)
[2019-10-18 22:00] VITALS: BP 116/70
[2019-10-19 03:53] VITALS: BP 124/73
[2019-10-19 08:14] VITALS: BP 123/69
[2019-10-19] MEDS: LISINOPRIL 10 MG TABLET PO SCH (09:16)
[2019-10-19] MEDS: NICOTINE 21 MG/24 HOUR PATCH TD SCH (09:16)
[2019-10-19 17:40] VITALS: BP 130/74
[2019-10-19] MEDS ORDERED: IBUPROFEN 400 MG TABLET PO PRN (19:30)
[2019-10-19] MEDS ORDERED: ALBUTEROL SULFATE HFA 90 MCG/PUFF 8 GM INHALER IH PRN (19:30)
[2019-10-19] MEDS ORDERED: NICOTINE 14 MG/24 HOUR PATCH TD PRN (19:30)
[2019-10-19] MEDS ORDERED: GuaiFENesin/D-METHORPHAN [SUGAR-FREE] 200-20MG/10 ML SYRUP UDCUP PO PRN (19:30)
[2019-10-19] MEDS ORDERED: DOCUSATE SODIUM 100 MG CAPSULE PO PRN (19:30)
[2019-10-19] MEDS ORDERED: CloNIDine HCL 0.1 MG TABLET PO PRN (19:30)
[2019-10-19] MEDS ORDERED: LOPERAMIDE HCL 2 MG CAPSULE PO PRN (19:30)
[2019-10-19] MEDS ORDERED: MAGNESIUM HYDROXIDE SUSPENSION 30 ML UDCUP PO PRN (19:30)
[2019-10-19] MEDS ORDERED: PETROLATUM,WHITE 28 GM JELLY TP PRN (19:30)
[2019-10-19] MEDS ORDERED: ACETAMINOPHEN 325 MG TABLET PO PRN (19:30)
[2019-10-19] MEDS ORDERED: MAG HYDROX/AL HYDROX/SIMETH ES 30 ML SUSPENSION UDCUP PO PRN (19:30)
[2019-10-19] MEDS ORDERED: ONDANSETRON HCL 4 MG TABLET PO PRN (19:30)
[2019-10-19 23:37] VITALS: BP 122/76
[2019-10-20 00:07] VITALS: BP 122/76
[2019-10-20 07:11] VITALS: BP 130/78
[2019-10-20] MEDS: LORazepam 2 MG TABLET PO PRN (07:13)
[2019-10-20 07:25] LABS: BASOPHILS % (AUTO) 0.5 % (0.0-2.0); EOSINOPHILS % (AUTO) 0 % (1.0-6.0); HEMATOCRIT 44.1 % (41-53); HEMOGLOBIN 14.4 g/dL (13.5-17.5); LYMPHOCYTES # (AUTO) 2.6 K/uL (1.0-4.8); LYMPHOCYTES % (AUTO) 19.9 % (22.0-44.0); MEAN CORPUSCULAR HEMOGLOBIN 28.8 pg (26.0-34.0); MEAN CORPUSCULAR HGB CONC 32.6 G/dL (31.0-37.0); MEAN CORPUSCULAR VOLUME 88 fL (80-100); MONOCYTES # (AUTO) 1.6 K/uL (0.1-1.0); MONOCYTES % (AUTO) 12.1 % (2.0-9.0); NEUTROPHILS # (AUTO) 8.6 K/uL (1.8-7.7); NEUTROPHILS % (AUTO) 67.5 % (40.0-70.0); PLATELET COUNT (AUTO) 282 K/uL (150-450); RED BLOOD CELL COUNT(AUTO) 4.98 MIL/uL (4.50-5.90); RED CELL DISTRIBUTION WIDTH 13.7 % (11.5-14.5)
[2019-10-20] MEDS: LISINOPRIL 10 MG TABLET PO SCH (08:02)
[2019-10-20] MEDS: NICOTINE 21 MG/24 HOUR PATCH TD SCH (08:02)
[2019-10-20 08:12] LABS: ALANINE AMINOTRANSFERASE 36 U/L (12-78); ALBUMIN 3.9 g/dL (3.4-5.0); ALKALINE PHOSPHATASE 88 U/L (46-116); ANION GAP 8 mmol/L (8-16); ASPARTATE AMINOTRANSFERASE 16 U/L (15-37); BILIRUBIN,TOTAL 0.3 mg/dL (0.1-1.0); CALCIUM, TOTAL 9.2 mg/dL (8.8-10.5); CARBON DIOXIDE 28 mmol/L (22-29); CHLORIDE 103 mmol/L (98-107); CHOL/HDL RATIO 5.8 (4.2-7.3); CHOLESTEROL 144 mg/dL (131-200); CREATININE 0.98 mg/dL (0.60-1.30); FREE T4 (FREE THYROXINE) 1.32 ng/dL (0.76-1.46); GLOMERULAR FILTR. RATE CALC > 60 mL/min (>60); GLUCOSE,RANDOM 163 mg/dL (70-110); HDL CHOLESTEROL 25 mg/dL (40-60); LDL CHOL (CALC.) 61 mg/dL (0-130); SODIUM SERUM 139 mmol/L (136-145); THYROID STIMULATING HORMONE 2.83 uIU/mL (0.36-3.74); TOTAL PROTEIN, SERUM 6.8 g/dL (6.4-8.2); TRIGLYCERIDES 292 mg/dL (15-150); UREA NITROGEN, BLOOD 21 mg/dL (7-18)
[2019-10-20 08:14] LABS: HEMOGLOBIN A1C 7.2 % (3.8-5.6)
[2019-10-20 08:37] VITALS: BP 138/78
[2019-10-20 16:17] VITALS: BP 123/82
[2019-10-20] MEDS: ZOLPIDEM TARTRATE 10 MG TABLET PO PRN (22:30)
[2019-10-21 03:32] VITALS: BP 124/70
[2019-10-21] MEDS: LORazepam 2 MG TABLET PO PRN (03:35)
[2019-10-21 08:11] VITALS: BP 113/72
[2019-10-21 08:12] LABS: AMPHET/METH SCREEN,URINE NEGATIVE (NEGATIVE); BARBITURATE SCREEN, URINE NEGATIVE (NEGATIVE); BENZODIAZEPINES SCREEN,URINE NEGATIVE (NEGATIVE); CANNABINOID SCREEN,URINE NEGATIVE (NEGATIVE); COCAINE SCREEN,URINE NEGATIVE (NEGATIVE); METHADONE SCREEN, URINE NEGATIVE (NEGATIVE); OPIATE SCREEN,URINE NEGATIVE (NEGATIVE)
[2019-10-21 08:15] LABS: APPEARANCE,URINE CLEAR (CLEAR); BILIRUBIN,URINE NEGATIVE (NEGATIVE); GLUCOSE, URINE (UA) NEGATIVE (NEGATIVE); KETONES,URINE NEGATIVE (NEGATIVE); LEUKOCYTE ESTERASE ,URINE NEGATIVE (NEGATIVE); NITRATE,URINE NEGATIVE (NEGATIVE); OCCULT BLOOD,URINE MODERATE (NEGATIVE); PH,URINE 6.5 (5.0-8.0); PROTEIN,URINE NEGATIVE (NEGATIVE); UROBILINOGEN,URINE 0.2 mg/dL (<=1.0)
[2019-10-21 08:25] LABS: BACTERIA,URINE None Seen /HPF (None Seen); RBC,URINE 0-2 /HPF (0-2); SQUAMOUS EPITHELIAL CELL,UR Few /LPF (None Seen); WBC,URINE None Seen /HPF (0-5)
[2019-10-21 08:34] LABS: PHENCYCLIDINE SCREEN,URINE NEGATIVE (NEGATIVE)
[2019-10-21] MEDS: NICOTINE 21 MG/24 HOUR PATCH TD SCH (08:39)
[2019-10-21] MEDS: LISINOPRIL 10 MG TABLET PO SCH (08:39)
[2019-10-21 16:09] VITALS: BP 120/78
[2019-10-21] MEDS: ZOLPIDEM TARTRATE 10 MG TABLET PO PRN (20:57)
[2019-10-22] MEDS: LORazepam 2 MG TABLET PO PRN (00:44)
[2019-10-22 01:15] VITALS: BP 143/79
[2019-10-22 08:20] VITALS: BP 126/79
[2019-10-22] MEDS: NICOTINE 21 MG/24 HOUR PATCH TD SCH (08:36)
[2019-10-22] MEDS: LISINOPRIL 10 MG TABLET PO SCH (08:36)
[2019-10-22] MEDS ORDERED: CloZAPine 100 MG TABLET PO ONE (13:45)
[2019-10-22 16:11] VITALS: BP 133/71
[2019-10-22] MEDS: CloZAPine 100 MG TABLET PO SCH (20:53)
[2019-10-23 04:48] VITALS: BP 142/85
[2019-10-23 08:12] LABS: BASOPHILS % (AUTO) 0.5 % (0.0-2.0); EOSINOPHILS % (AUTO) 0 % (1.0-6.0); HEMOGLOBIN 13.1 g/dL (13.5-17.5); LYMPHOCYTES # (AUTO) 2.8 K/uL (1.0-4.8); LYMPHOCYTES % (AUTO) 27.2 % (22.0-44.0); MEAN CORPUSCULAR HGB CONC 32.7 G/dL (31.0-37.0); MEAN CORPUSCULAR VOLUME 89 fL (80-100); MONOCYTES # (AUTO) 1.3 K/uL (0.1-1.0); MONOCYTES % (AUTO) 12.8 % (2.0-9.0); NEUTROPHILS # (AUTO) 6.1 K/uL (1.8-7.7); NEUTROPHILS % (AUTO) 59.5 % (40.0-70.0); PLATELET COUNT (AUTO) 263 K/uL (150-450); RED CELL DISTRIBUTION WIDTH 13.6 % (11.5-14.5)
[2019-10-23 08:23] VITALS: BP 137/81
[2019-10-23] MEDS: DIVALPROEX SODIUM 500 MG ER TABLET PO SCH (08:57)
[2019-10-23] MEDS: LISINOPRIL 10 MG TABLET PO SCH (08:57)
[2019-10-23] MEDS: CloZAPine 100 MG TABLET PO SCH ×2 (08:57→20:41)
[2019-10-23] MEDS: NICOTINE 21 MG/24 HOUR PATCH TD SCH (09:01)
[2019-10-23 16:20] VITALS: BP 148/92
[2019-10-23 17:19] VITALS: BP 141/86
[2019-10-24 08:04] VITALS: BP_SYST 117; BP_SYST 137; BP_DIAS 73; BP_DIAS 79
[2019-10-24] MEDS: LISINOPRIL 10 MG TABLET PO SCH (08:45)
[2019-10-24] MEDS: DIVALPROEX SODIUM 500 MG ER TABLET PO SCH (08:45)
[2019-10-24] MEDS: NICOTINE 21 MG/24 HOUR PATCH TD SCH (08:45)
[2019-10-24] MEDS: CloZAPine 100 MG TABLET PO SCH ×2 (08:45→20:36)
[2019-10-24 16:43] VITALS: BP 139/83
[2019-10-25 06:19] VITALS: BP 140/89
[2019-10-25 08:22] VITALS: BP 124/60
[2019-10-25] MEDS: CloZAPine 100 MG TABLET PO SCH ×2 (09:06→20:37)
[2019-10-25] MEDS: LISINOPRIL 10 MG TABLET PO SCH (09:06)
[2019-10-25] MEDS: DIVALPROEX SODIUM 500 MG ER TABLET PO SCH (09:06)
[2019-10-25] MEDS: NICOTINE 21 MG/24 HOUR PATCH TD SCH (09:10)
[2019-10-25 16:14] VITALS: BP 137/78
[2019-10-26 08:25] VITALS: BP 134/78
[2019-10-26] MEDS: DIVALPROEX SODIUM 500 MG ER TABLET PO SCH (08:34)
[2019-10-26] MEDS: CloZAPine 100 MG TABLET PO SCH ×2 (08:34→20:39)
[2019-10-26] MEDS: LISINOPRIL 10 MG TABLET PO SCH (08:34)
[2019-10-26] MEDS: NICOTINE 21 MG/24 HOUR PATCH TD SCH (08:37)
[2019-10-26 16:12] VITALS: BP 127/77
[2019-10-27 01:59] VITALS: BP 122/76
[2019-10-27 08:07] VITALS: BP 136/69
[2019-10-27] MEDS: NICOTINE 21 MG/24 HOUR PATCH TD SCH (08:45)
[2019-10-27] MEDS: CloZAPine 100 MG TABLET PO SCH ×2 (08:45→20:37)
[2019-10-27] MEDS: DIVALPROEX SODIUM 500 MG ER TABLET PO SCH (08:45)
[2019-10-27] MEDS: LISINOPRIL 10 MG TABLET PO SCH (08:45)
[2019-10-27 16:00] VITALS: BP 137/80
[2019-10-28 03:22] VITALS: BP 142/74
[2019-10-28] MEDS: LORazepam 2 MG TABLET PO PRN (03:23)
[2019-10-28] MEDS: CloZAPine 100 MG TABLET PO SCH ×2 (08:34→20:42)
[2019-10-28] MEDS: DIVALPROEX SODIUM 500 MG ER TABLET PO SCH (08:34)
[2019-10-28] MEDS: NICOTINE 21 MG/24 HOUR PATCH TD SCH (08:35)
[2019-10-28 08:37] VITALS: BP 124/70
[2019-10-28] MEDS: LISINOPRIL 10 MG TABLET PO SCH (08:40)
[2019-10-28 16:18] VITALS: BP 108/61
[2019-10-29 05:35] VITALS: BP 138/78
[2019-10-29 08:32] VITALS: BP 156/86
[2019-10-29] MEDS: DIVALPROEX SODIUM 500 MG ER TABLET PO SCH (09:02)
[2019-10-29] MEDS: LISINOPRIL 10 MG TABLET PO SCH (09:02)
[2019-10-29] MEDS: CloZAPine 100 MG TABLET PO SCH ×2 (09:02→20:30)
[2019-10-29] MEDS: NICOTINE 21 MG/24 HOUR PATCH TD SCH (09:34)
[2019-10-29 16:09] VITALS: BP 129/68
[2019-10-30 00:26] VITALS: BP 137/94
[2019-10-30 08:16] LABS: BASOPHILS % (AUTO) 0.8 % (0.0-2.0); EOSINOPHILS % (AUTO) 0 % (1.0-6.0); HEMATOCRIT 43.6 % (41-53); HEMOGLOBIN 14.4 g/dL (13.5-17.5); LYMPHOCYTES % (AUTO) 38.3 % (22.0-44.0); MEAN CORPUSCULAR VOLUME 88 fL (80-100); MONOCYTES # (AUTO) 0.8 K/uL (0.1-1.0); MONOCYTES % (AUTO) 10.8 % (2.0-9.0); NEUTROPHILS # (AUTO) 3.9 K/uL (1.8-7.7); NEUTROPHILS % (AUTO) 50.1 % (40.0-70.0); PLATELET COUNT (AUTO) 280 K/uL (150-450); RED BLOOD CELL COUNT(AUTO) 4.96 MIL/uL (4.50-5.90); RED CELL DISTRIBUTION WIDTH 13.3 % (11.5-14.5)
[2019-10-30 08:27] VITALS: BP 125/63
[2019-10-30] MEDS: DIVALPROEX SODIUM 500 MG ER TABLET PO SCH (08:43)
[2019-10-30] MEDS: CloZAPine 100 MG TABLET PO SCH ×2 (08:44→20:39)
[2019-10-30] MEDS: LISINOPRIL 10 MG TABLET PO SCH (08:44)
[2019-10-30] MEDS: NICOTINE 21 MG/24 HOUR PATCH TD SCH (08:45)
[2019-10-30 16:11] VITALS: BP 139/87
[2019-10-31 01:29] VITALS: BP 129/67
[2019-10-31 08:09] VITALS: BP 118/70
[2019-10-31] MEDS: DIVALPROEX SODIUM 500 MG ER TABLET PO SCH (08:31)
[2019-10-31] MEDS: CloZAPine 100 MG TABLET PO SCH ×2 (08:31→20:33)
[2019-10-31] MEDS: LISINOPRIL 10 MG TABLET PO SCH (08:31)
[2019-10-31] MEDS: NICOTINE 21 MG/24 HOUR PATCH TD SCH (08:32)
[2019-10-31 16:09] VITALS: BP 123/72
[2019-11-01 01:01] VITALS: BP 139/79
[2019-11-01 08:33] VITALS: BP 140/90
[2019-11-01] MEDS: DIVALPROEX SODIUM 500 MG ER TABLET PO SCH (08:44)
[2019-11-01] MEDS: MULTIVITAMINS WITH MINERALS, THERAPEUTIC TABLET PO SCH (08:45)
[2019-11-01] MEDS: CloZAPine 100 MG TABLET PO SCH ×2 (08:45→21:06)
[2019-11-01] MEDS: OMEGA-3/DHA/EPA/FISH OIL 1,000 MG CAPSULE PO SCH (08:45)
[2019-11-01] MEDS: LISINOPRIL 10 MG TABLET PO SCH (08:45)
[2019-11-01] MEDS: NICOTINE 21 MG/24 HOUR PATCH TD SCH (08:45)
[2019-11-01 16:10] VITALS: BP 132/87
[2019-11-02 00:25] VITALS: BP 135/66
[2019-11-02] MEDS: OMEGA-3/DHA/EPA/FISH OIL 1,000 MG CAPSULE PO SCH (08:19)
[2019-11-02] MEDS: MULTIVITAMINS WITH MINERALS, THERAPEUTIC TABLET PO SCH (08:19)
[2019-11-02] MEDS: LISINOPRIL 10 MG TABLET PO SCH (08:20)
[2019-11-02] MEDS: CloZAPine 100 MG TABLET PO SCH ×2 (08:20→20:15)
[2019-11-02] MEDS: DIVALPROEX SODIUM 500 MG ER TABLET PO SCH (08:20)
[2019-11-02] MEDS: NICOTINE 21 MG/24 HOUR PATCH TD SCH (08:21)
[2019-11-02 08:49] VITALS: BP 123/60
[2019-11-02 17:11] VITALS: BP 133/68
[2019-11-03 00:27] VITALS: BP 135/79
[2019-11-03 08:48] VITALS: BP 131/77
[2019-11-03] MEDS: LISINOPRIL 10 MG TABLET PO SCH (10:30)
[2019-11-03] MEDS: MULTIVITAMINS WITH MINERALS, THERAPEUTIC TABLET PO SCH (10:30)
[2019-11-03] MEDS: OMEGA-3/DHA/EPA/FISH OIL 1,000 MG CAPSULE PO SCH (10:30)
[2019-11-03] MEDS: DIVALPROEX SODIUM 500 MG ER TABLET PO SCH (10:30)
[2019-11-03] MEDS: NICOTINE 21 MG/24 HOUR PATCH TD SCH (10:30)
[2019-11-03] MEDS: CloZAPine 100 MG TABLET PO SCH ×2 (10:31→20:33)
[2019-11-03 16:00] VITALS: BP 141/83
[2019-11-04 06:56] VITALS: BP 120/60
[2019-11-04 08:15] VITALS: BP 112/69
[2019-11-04] MEDS: CloZAPine 100 MG TABLET PO SCH ×2 (09:43→20:58)
[2019-11-04] MEDS: DIVALPROEX SODIUM 500 MG ER TABLET PO SCH (09:43)
[2019-11-04] MEDS: NICOTINE 21 MG/24 HOUR PATCH TD SCH (09:44)
[2019-11-04] MEDS: LISINOPRIL 10 MG TABLET PO SCH (09:44)
[2019-11-04] MEDS: OMEGA-3/DHA/EPA/FISH OIL 1,000 MG CAPSULE PO SCH (09:46)
[2019-11-04] MEDS: MULTIVITAMINS WITH MINERALS, THERAPEUTIC TABLET PO SCH (09:48)
[2019-11-04 16:12] VITALS: BP 131/71
[2019-11-05 05:48] VITALS: BP 134/72
[2019-11-05 08:34] VITALS: BP 113/66
[2019-11-05] MEDS: DIVALPROEX SODIUM 500 MG ER TABLET PO SCH (08:40)
[2019-11-05] MEDS: OMEGA-3/DHA/EPA/FISH OIL 1,000 MG CAPSULE PO SCH (08:40)
[2019-11-05] MEDS: LISINOPRIL 10 MG TABLET PO SCH (08:40)
[2019-11-05] MEDS: MULTIVITAMINS WITH MINERALS, THERAPEUTIC TABLET PO SCH (08:40)
[2019-11-05] MEDS: CloZAPine 100 MG TABLET PO SCH ×2 (08:40→20:37)
[2019-11-05] MEDS: NICOTINE 21 MG/24 HOUR PATCH TD SCH (08:41)
[2019-11-05 16:09] VITALS: BP 134/84
[2019-11-06] MEDS: LISINOPRIL 10 MG TABLET PO SCH (08:18)
[2019-11-06] MEDS: DIVALPROEX SODIUM 500 MG ER TABLET PO SCH (08:18)
[2019-11-06] MEDS: MULTIVITAMINS WITH MINERALS, THERAPEUTIC TABLET PO SCH (08:18)
[2019-11-06] MEDS: OMEGA-3/DHA/EPA/FISH OIL 1,000 MG CAPSULE PO SCH (08:18)
[2019-11-06] MEDS: NICOTINE 21 MG/24 HOUR PATCH TD SCH (08:19)
[2019-11-06] MEDS: CloZAPine 100 MG TABLET PO SCH (08:20)
[2019-11-06 08:22] VITALS: BP 116/69
[2019-11-06] MEDS ORDERED: DIVA500T52 PO (10:03)
== END 2019-11-06 15:00 | disposition home or self-care (01) | DRG 885 ==
LOC: B2X 20:05
PROVIDERS: ADMIT Psychiatry & Neurology Psychiatry; ATTEND Psychiatry & Neurology Psychiatry
DX: F20.0 Paranoid schizophrenia (principal); E78.5 Hyperlipidemia, unspecified; G40.909 Epilepsy, unspecified, not intractable, without status epilepticus; I10 Essential (primary) hypertension; I25.10 Atherosclerotic heart disease of native coronary artery without angina pectoris; J44.9 Chronic obstructive pulmonary disease, unspecified; K21.9 Gastro-esophageal reflux disease without esophagitis; F41.9 Anxiety disorder, unspecified; F32.9 Major depressive disorder, single episode, unspecified
CPT/HCPCS: 80307; 83036; 84439; 84443; 90686; 90732; J1200; J1630; J2060

== ENCOUNTER 2020-12-08 12:31 | Emergency (ER) | payer MEDICARE ==
[~2020-12-08] VITALS: Ht 188 cm; Wt 100.0 kg
[~2020-12-08 12:31] MED LIST changes: +CLOZ100T32 PO; -CLOZ100T57 PO; +DIVA-80 PO; -LISI-661 PO; +LISI-893 PO; +METF-960 PO; +TRAZ-252 PO
[2020-12-08 12:46] VITALS: BP 141/93
[2020-12-08 14:10] LABS: COVID AG,FIA SOURCE NASOPHARYNGEAL
[2020-12-08 14:13] LABS: BASOPHILS % (AUTO) 0.6 % (0.0-2.0); EOSINOPHILS % (AUTO) 0 % (1.0-6.0); HEMATOCRIT 43.7 % (41-53); HEMOGLOBIN 14.5 g/dL (13.5-17.5); LYMPHOCYTES # (AUTO) 2.9 K/uL (1.0-4.8); MEAN CORPUSCULAR HEMOGLOBIN 29.1 pg (26.0-34.0); MEAN CORPUSCULAR HGB CONC 33.2 G/dL (31.0-37.0); MEAN CORPUSCULAR VOLUME 88 fL (80-100); NEUTROPHILS # (AUTO) 8.1 K/uL (1.8-7.7); NEUTROPHILS % (AUTO) 67.4 % (40.0-70.0); PLATELET COUNT (AUTO) 272 K/uL (150-450); RED BLOOD CELL COUNT(AUTO) 4.98 MIL/uL (4.50-5.90); RED CELL DISTRIBUTION WIDTH 13.2 % (11.5-14.5)
[2020-12-08 14:25] LABS: ANION GAP 10 mmol/L (8-16); CARBON DIOXIDE 27 mmol/L (22-29); CHLORIDE 103 mmol/L (98-107); POTASSIUM 4.3 mmol/L (3.5-5.1); SODIUM SERUM 140 mmol/L (136-145)
[2020-12-08 14:26] LABS: CALCIUM, TOTAL 8.9 mg/dL (8.8-10.5); CREATININE 1.07 mg/dL (0.60-1.30); GLOMERULAR FILTR. RATE CALC > 60 mL/min (>60); GLUCOSE,RANDOM 236 mg/dL (70-110); UREA NITROGEN, BLOOD 16 mg/dL (7-18)
[2020-12-08 14:32] LABS: ALANINE AMINOTRANSFERASE 32 U/L (12-78); ALBUMIN 3.9 g/dL (3.4-5.0); ALKALINE PHOSPHATASE 93 U/L (46-116); ASPARTATE AMINOTRANSFERASE 14 U/L (15-37); BILIRUBIN,TOTAL 0.3 mg/dL (0.1-1.0); TOTAL PROTEIN, SERUM 7.2 g/dL (6.4-8.2); VALPROIC ACID 29 mcg/mL (50-100)
== END 2020-12-08 15:10 | disposition home or self-care (01) ==
LOC: EMS 12:34
DX: F20.0 Paranoid schizophrenia (principal); R91.1 Solitary pulmonary nodule; I25.10 Atherosclerotic heart disease of native coronary artery without angina pectoris; I10 Essential (primary) hypertension; F17.210 Nicotine dependence, cigarettes, uncomplicated; Z20.822 Contact with and (suspected) exposure to COVID-19; Z79.899 Other long term (current) drug therapy; Z79.84 Long term (current) use of oral hypoglycemic drugs
CPT/HCPCS: 36415; 71045; 80053; 80164; 85025; 87426; 99284; G0480

== ENCOUNTER 2021-07-25 18:01 | Outpatient (CLI) | payer MEDICARE ==
[~2021-07-25 18:01] MED LIST changes: +METF-1211 PO; -METF-960 PO
[2021-07-25 18:56] LABS: GLUCOMETER DEV NAME(LOC) POC.BV
[2021-07-25 19:12] VITALS: BP 154/93
[2021-07-25 19:13] VITALS: BP 154/93
== END 2021-07-25 19:45 | disposition home or self-care (01) ==
LOC: CSU 18:01
PROVIDERS: ATTEND Psychiatry & Neurology Psychiatry
DX: F99 Mental disorder, not otherwise specified (principal)

== ENCOUNTER 2025-05-29 10:16 | Inpatient (IN) | payer MEDICARE ==
[~2025-05-29] VITALS: Ht 185.4 cm; Wt 94.8 kg
[2025-05-29 09:45] VITALS: BP 127/75; PULSE 89; RESP 18; TEMP 98.1; O2SAT 96
[~2025-05-29 10:16] MED LIST changes: -CLOZ100T32 PO; +CLOZ100T61 PO; -DIVA-80 PO; +DIVA-85 PO; +LISI-662 PO; -LISI-893 PO
[2025-05-29] MEDS ORDERED: ZOLPIDEM TARTRATE 10 MG TABLET PO PRN (10:30)
[2025-05-29 11:45] VITALS: BP 125/97; PULSE 86; RESP 18; TEMP 98.3; O2SAT 98
[2025-05-29 16:50] LABS: GLUCOMETER DEV NAME(LOC) POC.BV; POC SARS-COV2 AG, FIA NEGATIVE (NEGATIVE)
[2025-05-29] MEDS ORDERED: [UNRECOGNIZED DRUG - OTHER] IM. ONE (17:15)
[2025-05-29] MEDS ORDERED: INFLUENZA VIRUS VACCINE TVS IM. ONE (17:15)
[2025-05-29] MEDS ORDERED: BENZOCAINE/MENTHOL [CEPACOL] LOZENGE PO PRN (20:00)
[2025-05-29] MEDS ORDERED: MAGNESIUM HYDROXIDE SUSPENSION 30 ML UDCUP PO PRN (20:00)
[2025-05-29] MEDS ORDERED: OMEPRAZOLE 20 MG CAPSULE PO PRN (20:00)
[2025-05-29] MEDS ORDERED: LOPERAMIDE HCL 2 MG CAPSULE PO PRN (20:00)
[2025-05-29] MEDS ORDERED: ALBUTEROL SULFATE HFA 90 MCG/PUFF 8 GM INHALER IH PRN (20:00)
[2025-05-29] MEDS ORDERED: MAG HYDROX/ALUMINUM HYD/SIMETH ES 30 ML SUSPENSION UDCUP PO PRN (20:00)
[2025-05-29] MEDS ORDERED: ACETAMINOPHEN 325 MG TABLET PO PRN (20:00)
[2025-05-29] MEDS ORDERED: PETROLATUM,WHITE 28 GM JELLY TP PRN (20:00)
[2025-05-29] MEDS ORDERED: BACITRACIN 28 GM OINTMENT TP PRN (20:00)
[2025-05-29] MEDS ORDERED: ONDANSETRON 4 MG TABLET PO PRN (20:00)
[2025-05-29] MEDS ORDERED: DEXTROSE 50%-WATER 25 GM/50 ML SYRINGE IVP PRN (20:00)
[2025-05-29 22:45] VITALS: BP 117/66; PULSE 83; RESP 18; TEMP 98.6; O2SAT 96
[2025-05-30] MEDS: IBUPROFEN 600 MG TABLET PO PRN (01:26)
[2025-05-30 01:28] VITALS: BP 132/85; PULSE 81; RESP 18; TEMP 98.1; O2SAT 95
[2025-05-30 02:35] VITALS: RESP 18
[2025-05-30] MEDS: INSULIN LISPRO 100 UNITS/ML SQ PRN (05:47)
[2025-05-30 05:50] LABS: GLUCOMETER DEV NAME(LOC) BV2X.3; GLUCOSE,POINT OF CARE 271 MG/DL (70-110)
[2025-05-30 08:36] VITALS: BP 125/69; PULSE 60; RESP 18; TEMP 98.3; O2SAT 95
[2025-05-30 09:19] LABS: PLATELET COUNT (AUTO) 302 K/uL (150-450); RED BLOOD CELL COUNT(AUTO) 5.45 MIL/uL (4.50-5.90); RED CELL DISTRIBUTION WIDTH 13.7 % (11.5-14.5); WHITE BLOOD COUNT (AUTO) 9.8 K/uL (4.5-11.0)
[2025-05-30 09:47] LABS: ASPARTATE AMINOTRANSFERASE 22 U/L (15-37); CALCIUM, TOTAL 8.9 mg/dL (8.8-10.5); CHOL/HDL RATIO 5.9 (4.2-7.3); CREATININE 0.88 mg/dL (0.60-1.30); GLOMERULAR FILTR. RATE CALC > 60 mL/min (>60); GLUCOSE,RANDOM 174 mg/dL (70-110); LDL CHOL (CALC.) 72 mg/dL (0-130); SODIUM SERUM 135 mmol/L (136-145); TOTAL PROTEIN, SERUM 7.4 g/dL (6.4-8.2); UREA NITROGEN, BLOOD 20 mg/dL (7-18)
[2025-05-30 10:50] LABS: GLUCOMETER DEV NAME(LOC) POC.BV; POC SARS-COV2 AG, FIA NEGATIVE (NEGATIVE)
[2025-05-30 12:50] LABS: GLUCOMETER DEV NAME(LOC) BV2X.3; GLUCOSE,POINT OF CARE 218 MG/DL (70-110)
[2025-05-30 18:11] LABS: GLUCOMETER DEV NAME(LOC) BV2X.3; GLUCOSE,POINT OF CARE 270 MG/DL (70-110)
[2025-05-30 20:07] VITALS: BP 143/84; PULSE 83; RESP 19; TEMP 97.5; O2SAT 99
[2025-05-30 20:51] LABS: GLUCOMETER DEV NAME(LOC) BV2X.3; GLUCOSE,POINT OF CARE 185 MG/DL (70-110)
[2025-05-31 06:26] LABS: GLUCOMETER DEV NAME(LOC) BV2X.3; GLUCOSE,POINT OF CARE 198 MG/DL (70-110)
[2025-05-31 08:00] VITALS: BP 139/81; PULSE 79; RESP 18; TEMP 97; O2SAT 98
[2025-05-31] MEDS: DOCUSATE SODIUM 100 MG CAPSULE PO PRN (09:16)
[2025-05-31 11:11] LABS: GLUCOMETER DEV NAME(LOC) BV2X.3; GLUCOSE,POINT OF CARE 277 MG/DL (70-110)
[2025-05-31 17:35] LABS: GLUCOMETER DEV NAME(LOC) BV2X.3; GLUCOSE,POINT OF CARE 276 MG/DL (70-110)
[2025-05-31 20:22] VITALS: BP 127/72; PULSE 87; RESP 18; TEMP 97.2; O2SAT 100
[2025-05-31] MEDS ORDERED: GLUCAGON,HUMAN RECOMBINANT 1 MG VIAL IM PRN (21:15)
[2025-06-01] MEDS: INSULIN LISPRO 100 UNITS/ML SQ PRN (06:27)
[2025-06-01 08:32] VITALS: BP 118/62; PULSE 61; RESP 18; TEMP 97.3; O2SAT 100
[2025-06-01 11:35] LABS: GLUCOMETER DEV NAME(LOC) BV2X.3; GLUCOSE,POINT OF CARE 319 MG/DL (70-110)
[2025-06-01 16:41] LABS: GLUCOMETER DEV NAME(LOC) BV2X.3; GLUCOSE,POINT OF CARE 282 MG/DL (70-110)
[2025-06-01 20:35] LABS: GLUCOMETER DEV NAME(LOC) BV2X.3; GLUCOSE,POINT OF CARE 259 MG/DL (70-110)
[2025-06-01 20:46] VITALS: BP 128/78; PULSE 72; RESP 20; TEMP 97.9; O2SAT 98
[2025-06-02 06:40] LABS: GLUCOMETER DEV NAME(LOC) BV2X.3; GLUCOSE,POINT OF CARE 261 MG/DL (70-110)
[2025-06-02 08:24] VITALS: BP 129/66; PULSE 85; RESP 18; TEMP 97.1; O2SAT 97
[2025-06-02 11:30] LABS: GLUCOMETER DEV NAME(LOC) BV2X.3; GLUCOSE,POINT OF CARE 270 MG/DL (70-110)
[2025-06-02 16:55] LABS: GLUCOMETER DEV NAME(LOC) BV2X.3; GLUCOSE,POINT OF CARE 278 MG/DL (70-110)
[2025-06-02 20:19] VITALS: BP 144/80; PULSE 91; RESP 18; TEMP 98.1; O2SAT 98
[2025-06-02 21:05] LABS: GLUCOMETER DEV NAME(LOC) BV2X.3; GLUCOSE,POINT OF CARE 289 MG/DL (70-110)
[2025-06-03 07:06] LABS: GLUCOMETER DEV NAME(LOC) BV2X.3; GLUCOSE,POINT OF CARE 270 MG/DL (70-110)
[2025-06-03 08:54] VITALS: BP 147/88; PULSE 93; RESP 18; TEMP 97.8; O2SAT 96
[2025-06-03 11:55] LABS: GLUCOMETER DEV NAME(LOC) BV2X.3; GLUCOSE,POINT OF CARE 327 MG/DL (70-110)
[2025-06-03 17:06] LABS: GLUCOMETER DEV NAME(LOC) BV2X.3; GLUCOSE,POINT OF CARE 242 MG/DL (70-110)
[2025-06-03 20:18] VITALS: BP 143/83; PULSE 98; RESP 18; TEMP 98.6; O2SAT 96
[2025-06-03 21:20] LABS: GLUCOMETER DEV NAME(LOC) BV2X.3; GLUCOSE,POINT OF CARE 284 MG/DL (70-110)
[2025-06-04 06:51] LABS: GLUCOMETER DEV NAME(LOC) BV2X.3; GLUCOSE,POINT OF CARE 277 MG/DL (70-110)
[2025-06-04 13:01] VITALS: BP 132/68; PULSE 79; RESP 18; TEMP 97.6; O2SAT 96
[2025-06-04 16:36] LABS: GLUCOMETER DEV NAME(LOC) BV2X.3; GLUCOSE,POINT OF CARE 259 MG/DL (70-110)
[2025-06-04 20:41] VITALS: BP 142/90; PULSE 91; RESP 18; TEMP 97.8; O2SAT 98
[2025-06-04 21:00] LABS: GLUCOMETER DEV NAME(LOC) BV2X.3; GLUCOSE,POINT OF CARE 311 MG/DL (70-110)
[2025-06-05 06:01] LABS: GLUCOMETER DEV NAME(LOC) BV2X.3; GLUCOSE,POINT OF CARE 257 MG/DL (70-110)
[2025-06-05 08:50] VITALS: BP 143/60; PULSE 97; RESP 17; TEMP 98.3; O2SAT 98
[2025-06-05 11:30] LABS: GLUCOMETER DEV NAME(LOC) BV2X.3; GLUCOSE,POINT OF CARE 251 MG/DL (70-110)
[2025-06-05 17:01] LABS: GLUCOMETER DEV NAME(LOC) BV2X.3; GLUCOSE,POINT OF CARE 306 MG/DL (70-110)
[2025-06-05 20:22] VITALS: BP 125/61; PULSE 83; RESP 18; TEMP 98.4; O2SAT 95
[2025-06-05 21:31] LABS: GLUCOMETER DEV NAME(LOC) BV2X.3; GLUCOSE,POINT OF CARE 200 MG/DL (70-110)
[2025-06-06 06:25] LABS: GLUCOMETER DEV NAME(LOC) BV2X.3; GLUCOSE,POINT OF CARE 241 MG/DL (70-110)
[2025-06-06 09:23] VITALS: BP 138/66; PULSE 97; RESP 18; TEMP 97.2; O2SAT 98
[2025-06-06 11:55] LABS: GLUCOMETER DEV NAME(LOC) BV2X.3; GLUCOSE,POINT OF CARE 310 MG/DL (70-110)
[2025-06-06 16:51] LABS: GLUCOMETER DEV NAME(LOC) BV2X.3; GLUCOSE,POINT OF CARE 275 MG/DL (70-110)
[2025-06-06 20:07] VITALS: BP 127/90; PULSE 102; RESP 18; TEMP 97.5; O2SAT 97
[2025-06-06 20:45] LABS: GLUCOMETER DEV NAME(LOC) BV2X.3; GLUCOSE,POINT OF CARE 252 MG/DL (70-110)
[2025-06-07 06:40] LABS: GLUCOMETER DEV NAME(LOC) BV2X.3; GLUCOSE,POINT OF CARE 294 MG/DL (70-110)
[2025-06-07 08:51] VITALS: BP 145/88; PULSE 84; RESP 18; TEMP 98.4; O2SAT 96
[2025-06-07] MEDS ORDERED: CLOZ100T61 PO (10:28)
[2025-06-07] MEDS ORDERED: CLOZ200T24 PO (10:58)
[2025-06-07 11:46] LABS: GLUCOMETER DEV NAME(LOC) BV2X.3; GLUCOSE,POINT OF CARE 227 MG/DL (70-110)
[2025-06-07 16:20] LABS: GLUCOMETER DEV NAME(LOC) BV2X.3; GLUCOSE,POINT OF CARE 292 MG/DL (70-110)
== END 2025-06-07 16:13 | disposition home or self-care (01) | DRG 885 ==
LOC: UNDOADMIN 10:19 → B2X 10:19
PROVIDERS: ADMIT Psychiatry & Neurology Psychiatry; ATTEND Psychiatry & Neurology Psychiatry
DX: F20.9 Schizophrenia, unspecified (principal); E11.65 Type 2 diabetes mellitus with hyperglycemia; F32.A Depression, unspecified; I10 Essential (primary) hypertension; J44.9 Chronic obstructive pulmonary disease, unspecified; Z20.822 Contact with and (suspected) exposure to COVID-19; E78.5 Hyperlipidemia, unspecified; F41.9 Anxiety disorder, unspecified; K21.9 Gastro-esophageal reflux disease without esophagitis; K59.00 Constipation, unspecified; Z72.0 Tobacco use
CPT/HCPCS: 80053; 80061; 82962; 83036; 84439; 84443; 85025; 87081

== ENCOUNTER 2025-07-02 09:51 | Inpatient (IN) | payer MEDICARE ==
[~2025-07-02] VITALS: Ht 182.9 cm; Wt 93.9 kg
[~2025-07-02 09:51] MED LIST changes: +CLOZ200T24 PO; -DIVA-85 PO; -TRAZ-252 PO
[2025-07-02] MEDS ORDERED: ZOLPIDEM TARTRATE 10 MG TABLET PO PRN (10:45)
[2025-07-02 12:26] LABS: GLUCOMETER DEV NAME(LOC) POC.BV; POC SARS-COV2 AG, FIA NEGATIVE (NEGATIVE)
[2025-07-02 13:29] VITALS: BP 129/98; PULSE 72; RESP 18; TEMP 97.3; O2SAT 98
[2025-07-02 20:15] VITALS: BP 139/82; PULSE 70; RESP 18; TEMP 97.8; O2SAT 96
[2025-07-03] MEDS ORDERED: BENZOCAINE/MENTHOL [CEPACOL] LOZENGE PO PRN (08:30)
[2025-07-03] MEDS ORDERED: ALBUTEROL SULFATE HFA 90 MCG/PUFF 8 GM INHALER IH PRN (08:30)
[2025-07-03] MEDS ORDERED: MAGNESIUM HYDROXIDE SUSPENSION 30 ML UDCUP PO PRN (08:30)
[2025-07-03] MEDS ORDERED: GLUCAGON,HUMAN RECOMBINANT 1 MG VIAL IM PRN (08:30)
[2025-07-03] MEDS ORDERED: DOCUSATE SODIUM 100 MG CAPSULE PO PRN (08:30)
[2025-07-03] MEDS ORDERED: PETROLATUM,WHITE 28 GM JELLY TP PRN (08:30)
[2025-07-03] MEDS ORDERED: LOPERAMIDE HCL 2 MG CAPSULE PO PRN (08:30)
[2025-07-03] MEDS ORDERED: IBUPROFEN 600 MG TABLET PO PRN (08:30)
[2025-07-03] MEDS ORDERED: BACITRACIN 28 GM OINTMENT TP PRN (08:30)
[2025-07-03] MEDS ORDERED: ONDANSETRON 4 MG TABLET PO PRN (08:30)
[2025-07-03] MEDS ORDERED: ACETAMINOPHEN 325 MG TABLET PO PRN (08:30)
[2025-07-03] MEDS ORDERED: OMEPRAZOLE 20 MG CAPSULE PO PRN (08:30)
[2025-07-03 08:37] VITALS: BP 140/73; PULSE 72; RESP 18; TEMP 97.9; O2SAT 98
[2025-07-03 09:37] LABS: ASPARTATE AMINOTRANSFERASE 17 U/L (15-37); CALCIUM, TOTAL 8.8 mg/dL (8.8-10.5); CHOL/HDL RATIO 4.8 (4.2-7.3); CREATININE 0.83 mg/dL (0.60-1.30); GLOMERULAR FILTR. RATE CALC > 60 mL/min (>60); GLUCOSE,RANDOM 303 mg/dL (70-110); LDL CHOL (CALC.) 69 mg/dL (0-130); SODIUM SERUM 134 mmol/L (136-145); TOTAL PROTEIN, SERUM 6.8 g/dL (6.4-8.2); UREA NITROGEN, BLOOD 16 mg/dL (7-18)
[2025-07-03 09:42] LABS: PLATELET COUNT (AUTO) 246 K/uL (150-450); RED BLOOD CELL COUNT(AUTO) 4.75 MIL/uL (4.50-5.90); RED CELL DISTRIBUTION WIDTH 13.0 % (11.5-14.5); WHITE BLOOD COUNT (AUTO) 9.0 K/uL (4.5-11.0)
[2025-07-03 09:48] LABS: ALCOHOL, BLOOD (SERUM) < 3 mg/dL (0-10)
[2025-07-03] MEDS: INSULIN LISPRO 100 UNITS/ML SQ PRN (17:14)
[2025-07-03 17:20] LABS: GLUCOMETER DEV NAME(LOC) BV2X.3; GLUCOSE,POINT OF CARE 319 MG/DL (70-110)
[2025-07-03 20:11] VITALS: BP 126/70; PULSE 71; RESP 18; TEMP 99; O2SAT 97
[2025-07-03] MEDS: ROSUVASTATIN CALCIUM 10 MG TABLET PO SCH (20:38)
[2025-07-03 21:36] LABS: GLUCOMETER DEV NAME(LOC) BV2X.3; GLUCOSE,POINT OF CARE 216 MG/DL (70-110)
[2025-07-04 06:06] LABS: GLUCOMETER DEV NAME(LOC) BV2X.3; GLUCOSE,POINT OF CARE 248 MG/DL (70-110)
[2025-07-04 08:23] VITALS: BP 137/78; PULSE 98; RESP 17; TEMP 96.5; O2SAT 98
[2025-07-04 11:56] LABS: GLUCOMETER DEV NAME(LOC) BV2X.3; GLUCOSE,POINT OF CARE 271 MG/DL (70-110)
[2025-07-04 17:10] LABS: GLUCOMETER DEV NAME(LOC) BV2X.3; GLUCOSE,POINT OF CARE 304 MG/DL (70-110)
[2025-07-04 20:13] VITALS: BP 121/74; PULSE 92; RESP 17; TEMP 98.1; O2SAT 96
[2025-07-04 20:50] LABS: GLUCOMETER DEV NAME(LOC) BV2X.3; GLUCOSE,POINT OF CARE 239 MG/DL (70-110)
[2025-07-05 06:30] LABS: GLUCOMETER DEV NAME(LOC) BV2X.3; GLUCOSE,POINT OF CARE 286 MG/DL (70-110)
[2025-07-05 08:10] VITALS: BP 132/91; PULSE 72; RESP 18; TEMP 98.3; O2SAT 97
[2025-07-05 09:53] LABS: APPEARANCE,URINE CLEAR (CLEAR); GLUCOSE, URINE (UA) >=1000 mg/dL (NEGATIVE); LEUKOCYTE ESTERASE ,URINE NEGATIVE (NEGATIVE); NITRATE,URINE NEGATIVE (NEGATIVE); OCCULT BLOOD,URINE NEGATIVE (NEGATIVE); PH,URINE DRUG SCREEN 6.0 (5.0-8.0); SPECIFIC GRAVITIY, URINE 1.033 (1.003-1.030)
[2025-07-05 10:09] LABS: AMPHET/METH SCREEN,URINE NEGATIVE (NEGATIVE); BARBITURATE SCREEN, URINE NEGATIVE (NEGATIVE); CANNABINOID SCREEN,URINE NEGATIVE (NEGATIVE); COCAINE SCREEN,URINE NEGATIVE (NEGATIVE); METHADONE SCREEN, URINE NEGATIVE (NEGATIVE)
[2025-07-05 10:10] LABS: ALCOHOL, URINE DRUG SCREEN NEGATIVE (NEGATIVE)
[2025-07-05 11:36] LABS: GLUCOMETER DEV NAME(LOC) BV2X.3; GLUCOSE,POINT OF CARE 375 MG/DL (70-110)
[2025-07-05 17:05] LABS: GLUCOMETER DEV NAME(LOC) BV2X.3; GLUCOSE,POINT OF CARE 236 MG/DL (70-110)
[2025-07-05 20:07] VITALS: BP 102/61; PULSE 81; RESP 17; TEMP 97.8; O2SAT 98
[2025-07-06 01:05] LABS: GLUCOMETER DEV NAME(LOC) BV2X.3; GLUCOSE,POINT OF CARE 295 MG/DL (70-110)
[2025-07-06 07:00] LABS: GLUCOMETER DEV NAME(LOC) BV2X.3; GLUCOSE,POINT OF CARE 244 MG/DL (70-110)
[2025-07-06 08:16] VITALS: BP 140/74; PULSE 86; RESP 18; TEMP 98.2; O2SAT 96
[2025-07-06 11:45] LABS: GLUCOMETER DEV NAME(LOC) BV2X.3; GLUCOSE,POINT OF CARE 291 MG/DL (70-110)
[2025-07-06 16:45] LABS: GLUCOMETER DEV NAME(LOC) BV2X.3; GLUCOSE,POINT OF CARE 238 MG/DL (70-110)
[2025-07-06 20:24] VITALS: BP 160/76; PULSE 100; RESP 18; TEMP 97.5; O2SAT 97
[2025-07-06 21:31] LABS: GLUCOMETER DEV NAME(LOC) BV2X.3; GLUCOSE,POINT OF CARE 250 MG/DL (70-110)
[2025-07-06] MEDS: MAG HYDROX/ALUMINUM HYD/SIMETH ES 30 ML SUSPENSION UDCUP PO PRN (21:47)
[2025-07-07 06:51] LABS: GLUCOMETER DEV NAME(LOC) BV2X.3; GLUCOSE,POINT OF CARE 264 MG/DL (70-110)
[2025-07-07 08:27] VITALS: BP 131/81; PULSE 82; RESP 18; TEMP 98.3; O2SAT 96
[2025-07-07 11:45] LABS: GLUCOMETER DEV NAME(LOC) BV2X.3; GLUCOSE,POINT OF CARE 213 MG/DL (70-110)
[2025-07-07 16:35] LABS: GLUCOMETER DEV NAME(LOC) BV2X.3; GLUCOSE,POINT OF CARE 207 MG/DL (70-110)
[2025-07-07 20:55] LABS: GLUCOMETER DEV NAME(LOC) BV2X.3; GLUCOSE,POINT OF CARE 217 MG/DL (70-110)
[2025-07-07] MEDS: INSULIN GLARGINE,HUM.REC.ANLOG 100 UNITS/ML SQ SCH (21:42)
[2025-07-08 06:25] LABS: GLUCOMETER DEV NAME(LOC) BV2X.3; GLUCOSE,POINT OF CARE 276 MG/DL (70-110)
[2025-07-08 08:24] VITALS: BP 123/79; PULSE 98; RESP 17; TEMP 97.3; O2SAT 100
[2025-07-08 10:40] VITALS: BP 139/81; PULSE 87; RESP 16; O2SAT 99
[2025-07-08 12:26] LABS: GLUCOMETER DEV NAME(LOC) BV2X.3; GLUCOSE,POINT OF CARE 212 MG/DL (70-110)
[2025-07-08 17:30] LABS: GLUCOMETER DEV NAME(LOC) BV2X.3; GLUCOSE,POINT OF CARE 189 MG/DL (70-110)
[2025-07-08 20:11] VITALS: BP 145/91; PULSE 88; RESP 18; TEMP 97.3; O2SAT 97
[2025-07-08 20:20] LABS: GLUCOMETER DEV NAME(LOC) BV2X.3; GLUCOSE,POINT OF CARE 118 MG/DL (70-110)
[2025-07-08] MEDS: INSULIN GLARGINE,HUM.REC.ANLOG 100 UNITS/ML SQ SCH (20:41)
[2025-07-09 06:35] LABS: GLUCOMETER DEV NAME(LOC) BV2X.3; GLUCOSE,POINT OF CARE 184 MG/DL (70-110)
[2025-07-09 08:23] VITALS: BP 115/83; PULSE 91; RESP 18; TEMP 97.6; O2SAT 98
[2025-07-09 15:56] LABS: GLUCOMETER DEV NAME(LOC) BV2X.3; GLUCOSE,POINT OF CARE 278 MG/DL (70-110)
[2025-07-09 20:05] VITALS: BP 108/62; PULSE 89; TEMP 98.4; O2SAT 96
[2025-07-09 23:30] LABS: GLUCOMETER DEV NAME(LOC) BV2X.3; GLUCOSE,POINT OF CARE 156 MG/DL (70-110)
[2025-07-10 06:01] LABS: GLUCOMETER DEV NAME(LOC) BV2X.3; GLUCOSE,POINT OF CARE 168 MG/DL (70-110)
[2025-07-10 08:13] VITALS: BP 116/64; PULSE 81; RESP 19; TEMP 98.1; O2SAT 97
[2025-07-10 08:52] LABS: PLATELET COUNT (AUTO) 254 K/uL (150-450); RED BLOOD CELL COUNT(AUTO) 5.10 MIL/uL (4.50-5.90); RED CELL DISTRIBUTION WIDTH 12.7 % (11.5-14.5); WHITE BLOOD COUNT (AUTO) 8.8 K/uL (4.5-11.0)
[2025-07-10 11:26] LABS: GLUCOMETER DEV NAME(LOC) BV2X.3; GLUCOSE,POINT OF CARE 169 MG/DL (70-110)
[2025-07-10 16:46] LABS: GLUCOMETER DEV NAME(LOC) BV2X.3; GLUCOSE,POINT OF CARE 207 MG/DL (70-110)
[2025-07-10 20:11] VITALS: BP 128/78; PULSE 90; RESP 18; TEMP 98; O2SAT 98
[2025-07-10 22:05] LABS: GLUCOMETER DEV NAME(LOC) BV2X.3; GLUCOSE,POINT OF CARE 160 MG/DL (70-110)
[2025-07-11 07:01] LABS: GLUCOMETER DEV NAME(LOC) BV2X.3; GLUCOSE,POINT OF CARE 152 MG/DL (70-110)
[2025-07-11 08:33] VITALS: BP 136/65; PULSE 96; RESP 18; TEMP 97.5; O2SAT 100
[2025-07-11 12:20] LABS: GLUCOMETER DEV NAME(LOC) BV2X.3; GLUCOSE,POINT OF CARE 99 MG/DL (70-110)
[2025-07-11 17:11] LABS: GLUCOMETER DEV NAME(LOC) BV2X.3; GLUCOSE,POINT OF CARE 238 MG/DL (70-110)
[2025-07-11 20:08] VITALS: BP 130/78; PULSE 82; RESP 17; TEMP 98
[2025-07-11 21:35] LABS: GLUCOMETER DEV NAME(LOC) BV2X.3; GLUCOSE,POINT OF CARE 160 MG/DL (70-110)
[2025-07-12 06:35] LABS: GLUCOMETER DEV NAME(LOC) BV2X.3; GLUCOSE,POINT OF CARE 157 MG/DL (70-110)
[2025-07-12 08:13] VITALS: BP 143/77; PULSE 88; RESP 19; TEMP 97.8; O2SAT 97
[2025-07-12] MEDS ORDERED: CLOZ100T61 PO (10:21)
[2025-07-12] MEDS ORDERED: GLIP10TA17 PO (10:23)
[2025-07-12] MEDS ORDERED: LISI-894 PO (10:25)
[2025-07-12] MEDS ORDERED: ROSU10TA98 PO (10:26)
[2025-07-12 12:01] LABS: GLUCOMETER DEV NAME(LOC) BV2X.3; GLUCOSE,POINT OF CARE 181 MG/DL (70-110)
== END 2025-07-12 14:12 | disposition home or self-care (01) | DRG 885 ==
LOC: B2X 10:33
PROVIDERS: ADMIT Psychiatry & Neurology Psychiatry; ATTEND Psychiatry & Neurology Psychiatry
DX: F20.9 Schizophrenia, unspecified (principal); E11.65 Type 2 diabetes mellitus with hyperglycemia; Z91.148 Patient's other noncompliance with medication regimen for other reason; I10 Essential (primary) hypertension; J44.9 Chronic obstructive pulmonary disease, unspecified; Z20.822 Contact with and (suspected) exposure to COVID-19; K21.9 Gastro-esophageal reflux disease without esophagitis; E78.5 Hyperlipidemia, unspecified; K59.00 Constipation, unspecified
CPT/HCPCS: 80053; 80061; 80307; 81001; 82962; 83036; 84436; 84443; 85025; 86592; G0480; J1815